=== PATIENT | female | born 1955 | race Caucasian/White ===

== ENCOUNTER 2016-08-20 11:46 | Outpatient (CLI) | payer BC ==
[~2016-08-20] VITALS: Ht 160.1 cm; Wt 50.9 kg
[~2016-08-20 11:46] MED LIST: ALBUTEROL0.83 MG/ML IH; ATIVAN 0.50.5 MG/TAB PO; CEPHALEXIN500 M1 PO; CORDARONE200 MG/TAB PO; DILANTIN 100MG100 MG PO; EXCEDRIN1 TAB PO; LOPRESSOR 550 MG/TAB PO; LORTAB 10/500 51 TAB PO; NATURAL VITAM1000 MG PO; NEURONTIN300 MG/CAP PO; NEURONTIN600 MG/TAB PO; NICODERM C21 MG/PATC TOP; NORCO 325 MG-101 TAB PO; OXYCONTIN 10MG10 MG PO; OXYCONTIN60 MG PO; PHENOBARBITAL32.4 MG PO; REQUIP XL2 MG PO; RT ADVAIR 228 DISKUS IH; SINGULAIR 110 MG/TAB PO; THEO-DUR 3300 MG/TAB PO; VENTOLIN0.09 MG IH; VITAMIN D1000 IU PO
[2016-08-20 12:12] VITALS: BP 121/65; PULSE 75
[2016-08-20 13:20] VITALS: BP 104/50; BP 107/50; PULSE 65; PULSE 76
[2016-08-20 13:45] VITALS: BP 11/78; PULSE 67
[2016-08-20 14:20] VITALS: BP 114/78; PULSE 78
[2016-08-20 14:45] VITALS: BP 110/56; PULSE 67
[2016-09-13] MEDS ORDERED: ASPIRIN 81M81 MG/TA2 PO (08:39)
== END 2016-08-24 10:11 | disposition home or self-care (01) ==
LOC: COL.RAD 11:46
DX: M51.16 Intervertebral disc disorders with radiculopathy, lumbar region (principal); G89.29 Other chronic pain
CPT/HCPCS: Q9965

== ENCOUNTER → 2016-08-24 | Outpatient (CLI) | payer BC ==
[~2016-08-24] MED LIST changes: +00186-0370-20 IH; +ASPIRIN 81M81 MG/TA2 PO; +DEPAKOTE 250MG250 MG PO; +FIORICET 325 MG1 TA1 PO; +KEPPRA 500MG500 MG PO; +LEXAPRO20 MG PO; +MAG-OX 400400 MG/TAB PO; +MASON NATURAL1200 MG PO; +MULTIPLE VITAMI1 CAP PO; +NORCO 325 MG-51 TAB PO
== END ==
LOC: MHCPAIN 13:13
DX: G89.29 Other chronic pain (principal); M47.817 Spondylosis without myelopathy or radiculopathy, lumbosacral region; M54.16 Radiculopathy, lumbar region; M53.3 Sacrococcygeal disorders, not elsewhere classified
CPT/HCPCS: G0463

== ENCOUNTER → 2016-09-13 | Outpatient (CLI) | payer BC | LOC: MHCPAIN 12:17 | DX: M47.817 Spondylosis without myelopathy or radiculopathy, lumbosacral region (principal) | CPT/HCPCS: J1040; Q9967 ==

== ENCOUNTER 2016-09-17 09:00 | Outpatient (CLI) | payer BC ==
[2016-09-17] VITALS (7 sets, daily range): BP systolic 109–130; BP diastolic 69–78; PULSE 60–82
[~2016-09-17] VITALS: Ht 160.1 cm; Wt 50.0 kg
[~2016-09-17 09:00] MED LIST changes: -00186-0370-20 IH; -DEPAKOTE 250MG250 MG PO; -FIORICET 325 MG1 TA1 PO; -KEPPRA 500MG500 MG PO; -LEXAPRO20 MG PO; -MAG-OX 400400 MG/TAB PO; -MASON NATURAL1200 MG PO; -MULTIPLE VITAMI1 CAP PO; -NORCO 325 MG-51 TAB PO
== END 2016-09-17 13:37 | disposition home or self-care (01) ==
LOC: COL.RAD 09:00
DX: M41.82 Other forms of scoliosis, cervical region (principal); M47.892 Other spondylosis, cervical region; S13.150A Subluxation of C4/C5 cervical vertebrae, initial encounter; S13.160A Subluxation of C5/C6 cervical vertebrae, initial encounter; J43.9 Emphysema, unspecified
CPT/HCPCS: Q9965

== ENCOUNTER 2016-09-21 14:21 | Emergency (ER) | payer BC ==
[~2016-09-21] VITALS: Ht 160 cm; Wt 50.0 kg
[2016-09-21 14:28] VITALS: TEMP 98.7
[2016-09-21] MEDS ORDERED: NORCO 325 MG-51 TAB PO (17:12)
[2016-09-21 17:20] VITALS: BP 115/77; PULSE 72
== END 2016-09-21 17:29 | disposition home or self-care (01) ==
LOC: COL.ER 14:21
DX: G43.909 Migraine, unspecified, not intractable, without status migrainosus (principal); M54.2 Cervicalgia; G20 Parkinson's disease; J44.9 Chronic obstructive pulmonary disease, unspecified; F17.210 Nicotine dependence, cigarettes, uncomplicated; Z99.81 Dependence on supplemental oxygen
CPT/HCPCS: J1885; J3360

== ENCOUNTER → 2016-10-12 | Outpatient (CLI) | payer BC ==
[~2016-10-12] MED LIST changes: +00186-0370-20 IH; +DEPAKOTE 250MG250 MG PO; +FIORICET 325 MG1 TA1 PO; +KEPPRA 500MG500 MG PO; +LEXAPRO20 MG PO; +MAG-OX 400400 MG/TAB PO; +MASON NATURAL1200 MG PO; +MULTIPLE VITAMI1 CAP PO; +NORCO 325 MG-51 TAB PO
== END ==
LOC: MHCPAIN 10:38
DX: G89.29 Other chronic pain (principal); M47.819 Spondylosis without myelopathy or radiculopathy, site unspecified; M54.16 Radiculopathy, lumbar region; M54.81 Occipital neuralgia; M50.90 Cervical disc disorder, unspecified, unspecified cervical region; R51 Headache
CPT/HCPCS: G0463

== ENCOUNTER → 2016-10-18 | Outpatient (CLI) | payer BC | LOC: MHCPAIN 10:11 | DX: M54.16 Radiculopathy, lumbar region (principal) | CPT/HCPCS: J1100; Q9967 ==

== ENCOUNTER → 2016-11-19 | Outpatient (CLI) | payer BC | LOC: MHCPAIN 10:39 | DX: G89.29 Other chronic pain (principal); M47.817 Spondylosis without myelopathy or radiculopathy, lumbosacral region; M54.16 Radiculopathy, lumbar region; F17.210 Nicotine dependence, cigarettes, uncomplicated | CPT/HCPCS: G0463 ==

== ENCOUNTER → 2016-11-22 | Outpatient (CLI) | payer BC | LOC: MHCPAIN 07:22 | DX: Z53.8 Procedure and treatment not carried out for other reasons (principal) ==

== ENCOUNTER 2016-12-13 09:17 | Emergency (ER) | payer BC ==
[~2016-12-13] VITALS: Ht 160 cm; Wt 53.2 kg
[~2016-12-13 09:17] MED LIST changes: -00186-0370-20 IH; -DEPAKOTE 250MG250 MG PO; -FIORICET 325 MG1 TA1 PO; -KEPPRA 500MG500 MG PO; -LEXAPRO20 MG PO; -MAG-OX 400400 MG/TAB PO; -MASON NATURAL1200 MG PO; -MULTIPLE VITAMI1 CAP PO
[2016-12-13 09:19] VITALS: TEMP 99
[2016-12-13] MEDS ORDERED: MULTIPLE VITAMI1 CAP PO (10:31)
[2016-12-13] MEDS ORDERED: MASON NATURAL1200 MG PO (10:31)
[2016-12-13] MEDS ORDERED: LEXAPRO20 MG PO (10:32)
[2016-12-13] MEDS ORDERED: MAG-OX 400400 MG/TAB PO (10:32)
[2016-12-13] MEDS ORDERED: FIORICET 325 MG1 TA1 PO (10:33)
[2016-12-13] MEDS ORDERED: 00186-0370-20 IH (10:33)
[2016-12-13] MEDS ORDERED: KEPPRA 500MG500 MG PO (10:33)
[2016-12-13] MEDS ORDERED: DEPAKOTE 250MG250 MG PO (10:34)
[2016-12-13] MEDS ORDERED: NORCO 325 MG-51 TAB PO (10:35)
[2016-12-13 11:16] VITALS: BP 128/81; PULSE 78
== END 2016-12-13 10:54 | disposition home or self-care (01) ==
LOC: COL.ER 09:17
DX: M54.9 Dorsalgia, unspecified (principal); G89.29 Other chronic pain; M54.2 Cervicalgia; I10 Essential (primary) hypertension; G20 Parkinson's disease; I48.91 Unspecified atrial fibrillation; F17.210 Nicotine dependence, cigarettes, uncomplicated; Z95.810 Presence of automatic (implantable) cardiac defibrillator
CPT/HCPCS: J1170

== ENCOUNTER → 2016-12-21 | Outpatient (CLI) | payer BC ==
[~2016-12-21] MED LIST changes: +00186-0370-20 IH; +DEPAKOTE 250MG250 MG PO; +FIORICET 325 MG1 TA1 PO; +KEPPRA 500MG500 MG PO; +LEXAPRO20 MG PO; +MAG-OX 400400 MG/TAB PO; +MASON NATURAL1200 MG PO; +MULTIPLE VITAMI1 CAP PO
== END ==
LOC: MHCPAIN 12:01
DX: G89.29 Other chronic pain (principal); M47.817 Spondylosis without myelopathy or radiculopathy, lumbosacral region; M54.16 Radiculopathy, lumbar region; M53.3 Sacrococcygeal disorders, not elsewhere classified; F17.210 Nicotine dependence, cigarettes, uncomplicated
CPT/HCPCS: G0463

== ENCOUNTER → 2017-01-08 | Outpatient (CLI) | payer BC | LOC: COL.RAD 12:29 | DX: M48.58XA Collapsed vertebra, not elsewhere classified, sacral and sacrococcygeal region, initial encounter for fracture (principal); W19.XXXA Unspecified fall, initial encounter | CPT/HCPCS: J1956 ==

== ENCOUNTER → 2017-01-09 | Outpatient (CLI) | payer BC | LOC: MHCPAIN 10:27 | DX: G89.29 Other chronic pain (principal); M47.817 Spondylosis without myelopathy or radiculopathy, lumbosacral region; M53.3 Sacrococcygeal disorders, not elsewhere classified | CPT/HCPCS: G0463 ==

== ENCOUNTER → 2017-01-10 | Outpatient (CLI) | payer BC | LOC: MHCPAIN 13:30 | DX: M47.817 Spondylosis without myelopathy or radiculopathy, lumbosacral region (principal) ==

== ENCOUNTER 2017-01-15 10:30 | Outpatient (RCR) | payer BC | END 2017-01-17 09:57 | LOC: WSPT 10:30 | DX: M48.02 Spinal stenosis, cervical region (principal); G95.9 Disease of spinal cord, unspecified; M62.838 Other muscle spasm; M43.12 Spondylolisthesis, cervical region; M54.5 Low back pain ==

== ENCOUNTER → 2017-01-16 | Outpatient (CLI) | payer BC | LOC: MHCPAIN 11:11 | DX: G89.29 Other chronic pain (principal); M47.817 Spondylosis without myelopathy or radiculopathy, lumbosacral region; M53.3 Sacrococcygeal disorders, not elsewhere classified; M84.48XA Pathological fracture, other site, initial encounter for fracture; F17.210 Nicotine dependence, cigarettes, uncomplicated | CPT/HCPCS: G0463 ==

== ENCOUNTER → 2017-01-29 | Outpatient (CLI) | payer BC | LOC: MHCPAIN 09:48 | DX: G89.29 Other chronic pain (principal); M47.817 Spondylosis without myelopathy or radiculopathy, lumbosacral region; M53.3 Sacrococcygeal disorders, not elsewhere classified; M79.2 Neuralgia and neuritis, unspecified; F17.210 Nicotine dependence, cigarettes, uncomplicated | CPT/HCPCS: G0463 ==

== ENCOUNTER → 2017-03-01 | Outpatient (CLI) | payer BC | LOC: MHCPAIN 10:13 | DX: G89.29 Other chronic pain (principal); M47.817 Spondylosis without myelopathy or radiculopathy, lumbosacral region; M53.3 Sacrococcygeal disorders, not elsewhere classified; R51 Headache; F17.210 Nicotine dependence, cigarettes, uncomplicated | CPT/HCPCS: G0463 ==

== ENCOUNTER → 2017-03-13 | Outpatient (CLI) | payer BC | LOC: MHCPAIN 09:43 | DX: M54.81 Occipital neuralgia (principal) | CPT/HCPCS: J1100 ==

== ENCOUNTER → 2017-03-14 | Outpatient (CLI) | payer BC | LOC: MC.RAD 09:50 | DX: Z12.31 Encounter for screening mammogram for malignant neoplasm of breast (principal) ==

== ENCOUNTER → 2017-04-16 | Outpatient (CLI) | payer BC | LOC: MHCPAIN 10:31 | DX: G89.29 Other chronic pain (principal); M50.90 Cervical disc disorder, unspecified, unspecified cervical region; M54.81 Occipital neuralgia; R51 Headache; F17.210 Nicotine dependence, cigarettes, uncomplicated | CPT/HCPCS: G0463 ==

== ENCOUNTER → 2017-06-19 | Outpatient (CLI) | payer BC | LOC: MHCPAIN 10:50 | DX: G89.29 Other chronic pain (principal); M54.16 Radiculopathy, lumbar region; M53.3 Sacrococcygeal disorders, not elsewhere classified; F17.210 Nicotine dependence, cigarettes, uncomplicated | CPT/HCPCS: G0463 ==

== ENCOUNTER 2017-07-08 13:52 | Day surgery (SDC) | payer BC ==
[~2017-07-08] VITALS: Ht 160 cm; Wt 55.0 kg
[~2017-07-08 13:52] MED LIST changes: -VITAMIN D1000 IU PO; +VITAMIN D31000 IU PO
[2017-07-08] MEDS ORDERED: TYLENOL 500MG500 MG PO (14:11)
[2017-07-08] MEDS ORDERED: NORCO 325 MG-101 TAB PO (14:18)
[2017-07-08] MEDS ORDERED: IPRATROPIUM BROM3 M1 IH (14:23)
[2017-07-08] MEDS ORDERED: FOSAMAX 70MG TA70 MG PO (14:23)
[2017-07-08 14:27] VITALS: BP 115/71; PULSE 89; TEMP 98.3
[2017-07-08] MEDS ORDERED: MOTRIN 800800 MG/TAB PO (14:35)
[2017-07-08] MEDS ORDERED: KEPPRA 500MG500 MG PO (14:38)
[2017-07-08] MEDS ORDERED: MIDRIN 325 MG-11 CAP PO (14:38)
[2017-07-08] MEDS ORDERED: PHENOBARBITAL32.4 MG PO (14:40)
[2017-07-08] MEDS ORDERED: NICODERM C21 MG/PATC TD (14:52)
[2017-07-08 15:50] VITALS: BP 116/70; PULSE 81; TEMP 98.4
[2017-07-08 16:05] VITALS: BP 103/67; PULSE 79
== END 2017-07-08 16:46 | disposition home or self-care (01) ==
LOC: SDCO 13:52
DX: K92.1 Melena (principal); K57.30 Diverticulosis of large intestine without perforation or abscess without bleeding; K64.1 Second degree hemorrhoids; J43.9 Emphysema, unspecified; K59.00 Constipation, unspecified; F17.210 Nicotine dependence, cigarettes, uncomplicated; Z88.8 Allergy status to other drugs, medicaments and biological substances; Z86.010 Personal history of colon polyps; Z80.0 Family history of malignant neoplasm of digestive organs; Z80.1 Family history of malignant neoplasm of trachea, bronchus and lung; Z83.71 Family history of colonic polyps
CPT/HCPCS: OP; J2704; J7030

== ENCOUNTER → 2017-08-14 | Outpatient (CLI) | payer BC ==
[~2017-08-14] MED LIST changes: +FOSAMAX 70MG TA70 MG PO; +IPRATROPIUM BROM3 M1 IH; +MIDRIN 325 MG-11 CAP PO; +MOTRIN 800800 MG/TAB PO; +NICODERM C21 MG/PATC TD; +TYLENOL 500MG500 MG PO
== END ==
LOC: MHCPAIN 10:31
DX: G89.29 Other chronic pain (principal); M50.10 Cervical disc disorder with radiculopathy, unspecified cervical region; M54.81 Occipital neuralgia; F17.210 Nicotine dependence, cigarettes, uncomplicated
CPT/HCPCS: G0463

== ENCOUNTER → 2017-09-05 | Outpatient (CLI) | payer MEDICARE, BC | LOC: MHCPAIN 09:14 | DX: M50.323 Other cervical disc degeneration at C6-C7 level (principal); M48.02 Spinal stenosis, cervical region | CPT/HCPCS: J1100; Q9967 ==

== ENCOUNTER → 2017-09-18 | Outpatient (CLI) | payer MEDICARE, BC | LOC: MHCPAIN 09:32 | DX: G89.29 Other chronic pain (principal); M50.90 Cervical disc disorder, unspecified, unspecified cervical region; M54.12 Radiculopathy, cervical region; R51 Headache | CPT/HCPCS: G0463 ==

== ENCOUNTER → 2017-10-03 | Outpatient (CLI) | payer MEDICARE, BC | LOC: MHCPAIN 13:11 | DX: M50.322 Other cervical disc degeneration at C5-C6 level (principal); M46.96 Unspecified inflammatory spondylopathy, lumbar region | CPT/HCPCS: J1100; Q9967 ==

== ENCOUNTER → 2017-11-05 | Outpatient (CLI) | payer MEDICARE, BC | LOC: MHCPAIN 10:53 | DX: G89.29 Other chronic pain (principal); M50.90 Cervical disc disorder, unspecified, unspecified cervical region; M54.12 Radiculopathy, cervical region; M54.81 Occipital neuralgia; R51 Headache | CPT/HCPCS: G0463 ==

== ENCOUNTER → 2017-11-20 | Outpatient (CLI) | payer MEDICARE, BC | LOC: MHCPAIN 10:05 | DX: M50.322 Other cervical disc degeneration at C5-C6 level (principal) ==

== ENCOUNTER → 2017-11-26 | Outpatient (CLI) | payer MEDICARE, BC | LOC: MHCPAIN 12:14 | DX: G89.29 Other chronic pain (principal); M50.90 Cervical disc disorder, unspecified, unspecified cervical region; M54.12 Radiculopathy, cervical region; M54.81 Occipital neuralgia; R51 Headache | CPT/HCPCS: G0463 ==

== ENCOUNTER → 2018-01-28 | Outpatient (CLI) | payer MEDICARE, OTHER | LOC: MHCPAIN 10:11 | DX: G89.29 Other chronic pain (principal); M50.90 Cervical disc disorder, unspecified, unspecified cervical region; M54.12 Radiculopathy, cervical region; M54.81 Occipital neuralgia; R51 Headache | CPT/HCPCS: G0463 ==

== ENCOUNTER → 2018-03-25 | Outpatient (CLI) | payer MEDICARE, OTHER | LOC: MHCPAIN 10:21 | DX: G89.29 Other chronic pain (principal); M50.90 Cervical disc disorder, unspecified, unspecified cervical region; M54.12 Radiculopathy, cervical region; M54.81 Occipital neuralgia; R51 Headache | CPT/HCPCS: G0463 ==

== ENCOUNTER → 2018-03-27 | Outpatient (CLI) | payer MEDICARE, OTHER | LOC: MHCPAIN 10:25 | DX: M54.12 Radiculopathy, cervical region (principal); M50.90 Cervical disc disorder, unspecified, unspecified cervical region | CPT/HCPCS: J1100; Q9967 ==

== ENCOUNTER → 2018-05-21 | Outpatient (CLI) | payer MEDICARE, OTHER | LOC: MHCPAIN 10:05 | DX: G89.29 Other chronic pain (principal); M54.12 Radiculopathy, cervical region; M54.81 Occipital neuralgia; R51 Headache; M47.812 Spondylosis without myelopathy or radiculopathy, cervical region | CPT/HCPCS: G0463 ==

== ENCOUNTER → 2018-07-21 | Outpatient (CLI) | payer MEDICARE, OTHER | LOC: MHCPAIN 10:04 | DX: G89.29 Other chronic pain (principal); M54.12 Radiculopathy, cervical region; M54.81 Occipital neuralgia; R51 Headache; M47.812 Spondylosis without myelopathy or radiculopathy, cervical region | CPT/HCPCS: G0463 ==

== ENCOUNTER → 2018-09-15 | Outpatient (CLI) | payer MEDICARE, OTHER | LOC: MHCPAIN 10:56 | DX: G89.29 Other chronic pain (principal); M54.12 Radiculopathy, cervical region; M54.81 Occipital neuralgia; R51 Headache; M47.812 Spondylosis without myelopathy or radiculopathy, cervical region | CPT/HCPCS: G0463 ==

== ENCOUNTER → 2018-12-02 | Outpatient (CLI) | payer MEDICARE, OTHER | LOC: MHCPAIN 09:41 | DX: G89.29 Other chronic pain (principal); M47.817 Spondylosis without myelopathy or radiculopathy, lumbosacral region; M53.3 Sacrococcygeal disorders, not elsewhere classified; M50.90 Cervical disc disorder, unspecified, unspecified cervical region; M54.12 Radiculopathy, cervical region | CPT/HCPCS: G0463 ==

== ENCOUNTER → 2018-12-15 | Outpatient (CLI) | payer MEDICARE, OTHER | LOC: MHCPAIN 13:33 | DX: M47.817 Spondylosis without myelopathy or radiculopathy, lumbosacral region (principal); M54.16 Radiculopathy, lumbar region ==

== ENCOUNTER → 2019-01-15 | Outpatient (CLI) | payer MEDICARE, OTHER | LOC: MHCPAIN 10:49 | DX: M47.817 Spondylosis without myelopathy or radiculopathy, lumbosacral region (principal); M54.16 Radiculopathy, lumbar region; G89.29 Other chronic pain | CPT/HCPCS: G0463 ==

== ENCOUNTER → 2019-03-03 | Outpatient (CLI) | payer MEDICARE, OTHER | LOC: MHCPAIN 09:43 | DX: G89.29 Other chronic pain (principal); M47.817 Spondylosis without myelopathy or radiculopathy, lumbosacral region; M53.3 Sacrococcygeal disorders, not elsewhere classified | CPT/HCPCS: G0463 ==

== ENCOUNTER 2019-03-18 02:11 | Inpatient (IN) | payer MEDICARE, OTHER ==
[2019-03-18] VITALS (906 sets, daily range): BP systolic 56–143; BP diastolic 21–105; PULSE 26–130; TEMP 38; O2SAT 63–100
[~2019-03-18] VITALS: Ht 160 cm; Wt 69.8 kg
--- NOTE | 2019-03-18 02:07 | NUR ---
Patient arrived to the unit via EMS. Patient intubated at time of arrival and was being bagged by EMT's. This nurse did not receive a report from the other facility or EMS until after patients arrival. Patient had a stable BP and pulse on arrival. Dr. Ruby with patient upon arrival. Attached to our monitors. Hospitalist called and stated would call Dr. Roldan at this time. Dr. Ruby stated that he had contacted the daughter and that she would be coming.
[2019-03-18 02:39] LABS: ARTERIAL BLD GAS O2 SATURATION 99.1 % (92-100); ARTERIAL BLD GAS TCO2 CT 11.2; ARTERIAL BLOOD GAS BASE EXCESS -23.4 (-2-2); ARTERIAL BLOOD GAS HCO3 9.3 meq/L (22-26); ARTERIAL BLOOD GAS PCO2 60.7 mmHg (35-45)
[2019-03-18 02:40] LABS: ARTERIAL BLOOD GAS PO2 222.9 mmHg (80-100)
[2019-03-18 02:44] LABS: MEAN CELL VOLUME 100 fl (80.0-100.0); MEAN CORPUSCULAR HGB CONC 29 g/dl (33.0-37.0); MEAN PLATELET VOLUME 11.5 fl (7.4-10.4); PLATELET COUNT 98 K/mm3 (130-400); RED BLOOD COUNT 2.24 M/mm3 (4.10-5.30); REDCELL DISTRIBUTION WIDTH-CV 15.9 % (11.5-14.5)
--- NOTE | 2019-03-18 02:45 | NUR ---
Dr. Roldan here assess patient and to place central line.
[2019-03-18 02:48] LABS: HEMATOCRIT 22.5 % (37.0-47.0); HEMOGLOBIN 6.6 g/dl (12.5-16.0); MEAN CORPUSCULAR HEMOGLOBIN 29 pg (27.0-31.0)
[2019-03-18 02:50] LABS: INR 1.6 (0.8-3.0)
--- NOTE | 2019-03-18 02:54 | NUR ---
Called daughter and updated on patient status. Received verbal consent for central line placement.
[2019-03-18 02:57] LABS: ALBUMIN 1.5 gm/dL (3.5-5.0); BILIRUBIN,TOTAL 0.1 mg/dL (0.0-1.0); CALCIUM 6.7 mg/dL (8.4-10.2); CREATININE, serum 0.97 (0.52-1.25); POTASSIUM 5.7 mmol/L (3.4-5.0); TOTAL PROTEIN 2.8 gm/dL (6.4-8.2)
--- NOTE | 2019-03-18 03:00 | NUR ---
Instructed per Dr. Roldan to administer blood "wide open". Will bypass usual cross match checks.
--- NOTE | 2019-03-18 03:30 | NUR ---
Dr. Roldan unsuccessful with starting central line. Requested to call in Dr. Gomez from Surgery.
[2019-03-18 03:35] LABS: BAND 4 % (0-10); EOSINOPHIL 1 % (0-4); LYMPHOCYTE 18 % (20.0-51.0); METAMYELOCYTE 1 % (0-0); MYELOCYTE 4 % (0-0); NEUTROPHILS 67 % (42.0-75.2); PLATELET ESTIMATE DECREASED (NORMAL)
[2019-03-18 03:36] LABS: ANISOCYTOSIS 1+; HYPOCHROMIA 3+
--- NOTE | 2019-03-18 04:07 | NUR ---
Dr. Gomez at bedside to attempt central line placement. Attempt not successfrul and Dr. Gomez placed an 18g in the left neck.
--- NOTE | 2019-03-18 04:30 | NUR ---
Unable to obtain temp via axillary. Will need to attempt rectal. Dr. Gomez with patient attempting a line placement.
[2019-03-18 04:36] LABS: HEMATOCRIT 30.7 % (37.0-47.0); HEMOGLOBIN 9.8 g/dl (12.5-16.0)
[2019-03-18 04:47] LABS: ARTERIAL BLD GAS O2 SATURATION 95.4 % (92-100); ARTERIAL BLD GAS TCO2 CT 16.9; ARTERIAL BLOOD GAS BASE EXCESS -14.8 (-2-2); ARTERIAL BLOOD GAS HCO3 15.2 meq/L (22-26); ARTERIAL BLOOD GAS PCO2 55.1 mmHg (35-45); ARTERIAL BLOOD GAS PO2 92.7 mmHg (80-100); ARTERIAL BLOOD GAS pH 7.06 (7.35-7.45)
[2019-03-18 04:48] LABS: ALBUMIN 1.5 gm/dL (3.5-5.0); BILIRUBIN,TOTAL 0.1 mg/dL (0.0-1.0); CALCIUM 6.2 mg/dL (8.4-10.2); CREATININE, serum 0.93 (0.52-1.25); TOTAL PROTEIN 2.9 gm/dL (6.4-8.2)
[2019-03-18 04:52] LABS: POTASSIUM 6.1 mmol/L (3.4-5.0)
--- NOTE | 2019-03-18 05:30 | NUR ---
Rectal tube placed; Temp [address] Roldan notified. Unable to locate Teto Ayon in unit or ED. Called change house attendant to obtain blanket for warmer.
--- NOTE | 2019-03-18 05:40 | NUR ---
Notified Dr. Roldan that patient was having some bleeding from surgical sites after repositioning and turing patient on her side. Band-aids in place. No orders at this time.
--- NOTE | 2019-03-18 05:45 | NUR ---
Clarified with Dr. Galindo that he still wanted Cyklokapron administered. Confirmed that he still did. Med not available in [facility]. Will have pharmcay mix drug when on site.
--- NOTE | 2019-03-18 06:17 | NUR ---
Patient open eyes on and off. Shook head yes when told where she was and asked if she remembered having surgery. Able to lightly sqeeze hands on command.
--- NOTE | 2019-03-18 06:20 | NUR ---
Still awaiting Tommy rushing from warehouse clerk. Called shaina to request blanket. Stated she will go try to locate one in PACU.
--- NOTE | 2019-03-18 06:30 | NUR ---
Tommy hugger blanket placed and set to High setting. Rectal temp 93.7 F.
--- NOTE | 2019-03-18 06:45 | NUR ---
Received phone call from Pharmacist regarding Cyklokapron. Pharmacist questioning the necessity and benefit of this drug for this patient. Agreed to put med on hold until can discuss with hospitalist on days.
[2019-03-18 07:37] LABS: ARTERIAL BLOOD GAS pH 7.33 (7.35-7.45)
[2019-03-18 07:38] LABS: ARTERIAL BLD GAS O2 SATURATION 94.3 % (92-100); ARTERIAL BLD GAS TCO2 CT 23.3; ARTERIAL BLOOD GAS BASE EXCESS -3.7 (-2-2); ARTERIAL BLOOD GAS PCO2 42.3 mmHg (35-45)
--- NOTE | 2019-03-18 08:00 | NUR ---
PT IS ABLE TO OPEN EYES SPONTANEOUSLY AND COMMAND. PT IS FOLLOWING COMMANDS TO SQUEEZE HANDS AND MOVE TOES. BEARHUGGER IS ON.
--- NOTE | 2019-03-18 08:58 | NUR ---
Initial visit; Daughters; Filomena and Gail thanked for offering prayer for their mom and their family during this difficualt time. prayed for healing and strength for all.
[2019-03-18 09:27] LABS: HEMOGLOBIN 10.8 g/dl (12.5-16.0); MEAN CORPUSCULAR HEMOGLOBIN 29 pg (27.0-31.0); MEAN CORPUSCULAR HGB CONC 34 g/dl (33.0-37.0); MEAN PLATELET VOLUME 11.2 fl (7.4-10.4); PLATELET COUNT 64 K/mm3 (130-400); RED BLOOD COUNT 3.69 M/mm3 (4.10-5.30); REDCELL DISTRIBUTION WIDTH-CV 15.6 % (11.5-14.5)
[2019-03-18 10:05] LABS: HEMATOCRIT 31.8 % (37.0-47.0); MEAN CELL VOLUME 86 fl (80.0-100.0)
[2019-03-18 10:15] LABS: POTASSIUM 4.5 mmol/L (3.4-5.0)
[2019-03-18 10:21] LABS: BAND 36 % (0-10); LYMPHOCYTE 14 % (20.0-51.0); METAMYELOCYTE 1 % (0-0); MYELOCYTE 1 % (0-0); NEUTROPHILS 45 % (42.0-75.2); PLATELET ESTIMATE DECREASED (NORMAL)
[2019-03-18 10:24] LABS: ANISOCYTOSIS 1+; HYPOCHROMIA 1+
[2019-03-18 10:25] LABS: BILIRUBIN,TOTAL 0.4 mg/dL (0.0-1.0); CALCIUM 6.3 mg/dL (8.4-10.2); CREATININE, serum 0.96 (0.52-1.25); TOTAL PROTEIN 3.5 gm/dL (6.4-8.2)
--- NOTE | 2019-03-18 11:17 | NUR ---
DEREK lopes met with the patient (patient is intubated) and the patient's daughters, Filomena and Gail to discuss a discharge plan. The patient lives in [place] with her , Axel. The patient has a cane and uses oxygen. Patient receives oxygen supplies from [facility] in [place]. The patients PCP is Dr. Nelson and patient receives medications from [facility] pharmacy. Family helps quill picking machine operator medications. The patient does not have advanced directives in the EMR. The patient's daughter thought she signed DPOA-HC paperwork. DEREK lopes contacted [facility], Dr. Kennedy and Dr. Nelson's office to inquire about DPOA-HC paperwork and there is no paperwork on file. DEREK lopes explained to the patients daughters about medical decision making. The patient's daughters state the patient's does not assist with patient's medical decisions. DEREK lopes adivsed the patient's daughters that the patient's legally has to make medical decisions. business services coordinator will continue to follow.
--- NOTE | 2019-03-18 12:00 | NUR ---
0930: PT TEMP 98.2 F - BEARHUGGER TURNED DOWN TO MEDIUM. 0945: PT TEMP 98.8 F - BEARHUGGER TURNED OFF. 1015: PT TEMP 99.5 F - BLANKETS REMOVED FROM PT, ONLY ONE SHEET COVERING 1100: PT TEMP 100.2 - NOTIFIED OF BODY TEMP. FAN TURNED ON OVER PT. 1200: INFORMED OF OOZING FROM BLOODY OOZING AT SURGICAL SITES AND INSTRUCTS TO REINFORCE SURGICAL SITES - ABD PAD APPLIED OVER SITES AND SECURED WITH PAPER TAPE. BODY TEMP 100.9; AWARE. LEVOPHED INITIATED DUE TO LOW BP; NOTIFIED.
--- NOTE | 2019-03-18 13:00 | NUR ---
CALLED AND INFORMED PT HAS HAD 50ML OF URINE OUTPUT. RESPONSE: CONTINUE TO MONITOR THE NEXT COUPLE OF HOURS AND WILL RE-EVALUATE.
--- NOTE | 2019-03-18 14:37 | NUR ---
Worker and GAS BRAZER student met with the patients , Axel to discuss legal next of kin. The reports he and the patient have a son named Cullen. Axel reports there is not a DPOA-HC. The patient's daughter, Filomena reported she may have signed a DPOA-HC at some point and gave a list of the patient's physicians. GAS BRAZER student contacted the following physician offices inquire about DPOA-HC paperwork but none was provided: Dr. Nelson, Dr. Kennedy, Dr. Dejesus, Dr. Cruz and [facility]. The patient's is the legal next of kin. account services coordinator will continue to follow.
[2019-03-18 15:08] LABS: HEMATOCRIT 25.3 % (37.0-47.0); HEMOGLOBIN 8.7 g/dl (12.5-16.0)
[2019-03-18 15:34] LABS: ARTERIAL BLD GAS O2 SATURATION 93.8 % (92-100); ARTERIAL BLD GAS TCO2 CT 23.4; ARTERIAL BLOOD GAS BASE EXCESS -1.7 (-2-2); ARTERIAL BLOOD GAS HCO3 22.3 meq/L (22-26); ARTERIAL BLOOD GAS PCO2 34.8 mmHg (35-45); ARTERIAL BLOOD GAS PO2 69.3 mmHg (80-100); ARTERIAL BLOOD GAS pH 7.43 (7.35-7.45)
--- NOTE | 2019-03-18 17:00 | NUR ---
PT STABALIZING. NO SEDATION VACATION CONDUCTED.
[2019-03-18 18:16] LABS: HEMATOCRIT 23.7 % (37.0-47.0); HEMOGLOBIN 8.3 g/dl (12.5-16.0)
[2019-03-18 22:50] LABS: HEMATOCRIT 22.1 % (37.0-47.0); HEMOGLOBIN 7.7 g/dl (12.5-16.0)
--- NOTE | 2019-03-18 22:55 | NUR ---
NOTIFIED OF HGB 7.7, CURRENT VSS, AND OUTPUT. ORDER RECEIVED TO TRANSFUSE TWO UNITS AND THEN CHECK H/H AND A FIBRINOGIN LEVEL. ALSO ASKED THAT WE NOTIFY [facility] OF ABOVE. 2300: NOTIFIED JARAD POLO WITH [facility] REGARDING ABOVE. STATED HE WILL INFORM .
[2019-03-18 23:00] LABS: ALBUMIN 2.1 gm/dL (3.5-5.0); BILIRUBIN,TOTAL 0.1 mg/dL (0.0-1.0); CALCIUM 6.3 mg/dL (8.4-10.2); CREATININE, serum 1.39 (0.52-1.25); POTASSIUM 4.1 mmol/L (3.4-5.0); TOTAL PROTEIN 3.8 gm/dL (6.4-8.2)
[2019-03-18 23:10] LABS: ARTERIAL BLD GAS O2 SATURATION 94.3 % (92-100); ARTERIAL BLD GAS TCO2 CT 20.8; ARTERIAL BLOOD GAS HCO3 19.8 meq/L (22-26); ARTERIAL BLOOD GAS PCO2 30.8 mmHg (35-45); ARTERIAL BLOOD GAS PO2 71.8 mmHg (80-100); ARTERIAL BLOOD GAS pH 7.43 (7.35-7.45)
[2019-03-19] VITALS (1432 sets, daily range): BP systolic 88–129; BP diastolic 45–74; PULSE 90–111; TEMP 38–38.1; O2SAT 86–100
--- NOTE | 2019-03-19 03:25 | NUR ---
Pt became restless, shaking her arms, respirtaions 26, and when asked if she was in pain she shook her head yes. Comforted PT and encouraged her to try and relax. Propofol increased and oracle data warehouse developer called for Fentynl drip. Will continue to monitor.
--- NOTE | 2019-03-19 03:51 | NUR ---
PT RESTLESS AND TRYING TO MOVE HER ARMS AND PULL AT LINES. PT HR ELEVATED TO THE 120'S AND RESPIRATIONS 26. ASKED PT IF SHE WANTED ME TO GET HER SISTER AND SHE SHOOK HER HEAD YES. SISTER CAME IN FROM WAITING ROOM TO COMFORT PT. PROPOFOL AND FENT INCREASED. WILL CONTINUE TO MONTIOR CLOSELY.
--- NOTE | 2019-03-19 04:06 | NUR ---
PT RESTING COMFORTABLY. HR 108 AND RESPIRATIONS 20. SISTER BEDSIDE WITH PT. WILL CONTINUE TO MONITOR AND WEAN DOWN SEDATION ABLE.
--- NOTE | 2019-03-19 05:00 | NUR ---
AT 0345 PT BECAME VERY RESTLESS AND AGITATED. PT TRYING TO SIT UP IN BED AND PULL AT LINES AND TUBES. PT ABLE TO FOLLOW COMMANDS AND ANSWER YES AND NO QUESTIONS. PT'S HR UP TO THE 120'S AND RESPIRATIONS UP TO 30. PROPOFOL HAD TO BE TITRATED UP TO 50MCG/KG/MIN AND FENTYNL WAS ADDED WHEN PT RESPONDED YES TO PAIN. PT SISTER ALSO CAME BEDSIDE TO HELP CALM PT. PT FINALLY RESTING CALMLY AT AROUND 0410.PT STILL RESPONDING TO NAME AND TOUNCH. STARTED WEANING BACK ON SEDATION AND NOW PROPOFOL AT 30MCG/KG/MIN. WILL TRY TO WEAN DOWN FENTYNL. UNALBE TO DO SEDATION VACATION AT THIS TIME.
[2019-03-19 05:20] LABS: BASO % 0.1 % (0.0-2.0); GRAN # 9.1 (1.4-6.5); GRAN % 79.3 % (42.2-75.2); LYMPH # 1.2 (1.2-3.4); MEAN CELL VOLUME 85 fl (80.0-100.0); MEAN CORPUSCULAR HGB CONC 35 g/dl (33.0-37.0); MEAN PLATELET VOLUME 11.2 fl (7.4-10.4); MONO # 1.2 (0.1-0.6); MONO % 10.2 % (1.7-9.3); PLATELET COUNT 63 K/mm3 (130-400); RED BLOOD COUNT 3.16 M/mm3 (4.10-5.30); REDCELL DISTRIBUTION WIDTH-CV 17.1 % (11.5-14.5)
[2019-03-19 05:21] LABS: HEMATOCRIT 26.9 % (37.0-47.0); HEMOGLOBIN 9.3 g/dl (12.5-16.0); MEAN CORPUSCULAR HEMOGLOBIN 29 pg (27.0-31.0)
[2019-03-19 05:32] LABS: ALBUMIN 2.1 gm/dL (3.5-5.0); BILIRUBIN,TOTAL 0.5 mg/dL (0.0-1.0); CALCIUM 6.1 mg/dL (8.4-10.2); CREATININE, serum 1.17 (0.52-1.25); MAGNESIUM 1.5 mg/dL (1.6-2.3); PHOSPHOROUS 3.4 mg/dL (2.5-4.5); TOTAL PROTEIN 3.9 gm/dL (6.4-8.2)
[2019-03-19 05:38] LABS: ARTERIAL BLD GAS O2 SATURATION 95.7 % (92-100); ARTERIAL BLD GAS TCO2 CT 21.1; ARTERIAL BLOOD GAS BASE EXCESS -4.1 (-2-2); ARTERIAL BLOOD GAS HCO3 20.1 meq/L (22-26)
--- NOTE | 2019-03-19 06:08 | NUR ---
NOTIFIED JARAD POLO WITH [facility] OF PT'S MAG LEVEL 1.5. ORDER RECEIVED FROM FOR MAG 4GRAM IV REPLACEMENT.
--- NOTE | 2019-03-19 06:40 | NUR ---
bedside. Updated on overnight events. updated sister at bedside.
--- NOTE | 2019-03-19 07:30 | NUR ---
PT SUCTIONED AND SPUTUM OBTAINED FOR CULTURE PER MD ORDER.
--- NOTE | 2019-03-19 08:00 | NUR ---
Shift assessment complete at this time. Plan of care reviewed at bedside with family. Vitals stable at this time. Pt appears to be more comfortably resting while on ventilator after fentanyl gtt was increased. Prior Pt was restless and displaying signs of pain. No other signs of discomfort currently noted. Sister at bedside currently. Bed in low position, will continue to monitor.
[2019-03-19 10:52] LABS: ALBUMIN 2.1 gm/dL (3.5-5.0); BILIRUBIN,TOTAL 0.6 mg/dL (0.0-1.0); CALCIUM 6.1 mg/dL (8.4-10.2); CREATININE, serum 1.06 (0.52-1.25); POTASSIUM 3.8 mmol/L (3.4-5.0); TOTAL PROTEIN 3.9 gm/dL (6.4-8.2)
[2019-03-19 11:36] LABS: HEMOGLOBIN 8.5 g/dl (12.5-16.0)
--- NOTE | 2019-03-19 12:00 | NUR ---
Shift reassesment completed at this time. No changes from previous assessment noted. Pt reports mild increase in pain, will increase analgesic gtt accordingly per orders. Vitals stable at this time. Bed in low position, call light within reach, will continue to monitor.
--- NOTE | 2019-03-19 16:00 | NUR ---
Shift reassessment complete at this time. No changes from previous assessment noted. Vitals stable at this time. Pt appears to be resting comfortably in bed with current sedation level and displays no signs of pain or discomfort. Bed in low et locked position, will continue to monitor.
--- NOTE | 2019-03-19 17:08 | NUR ---
No sedation vacation performed at this time. Pt has been restless at RASS of +1 for the majority of the day. Will slowly wean off sedation to minimum required dosage.
[2019-03-19 18:38] LABS: BILIRUBIN,TOTAL 0.4 mg/dL (0.0-1.0); CALCIUM 6.3 mg/dL (8.4-10.2); CREATININE, serum 0.89 (0.52-1.25); POTASSIUM 3.7 mmol/L (3.4-5.0); TOTAL PROTEIN 3.9 gm/dL (6.4-8.2)
[2019-03-19 18:47] LABS: HEMATOCRIT 23.5 % (37.0-47.0); HEMOGLOBIN 7.9 g/dl (12.5-16.0)
[2019-03-19 18:50] LABS: TROPONIN-I 0.045 ng/mL (0.000-0.035)
--- NOTE | 2019-03-19 19:24 | NUR ---
Bedside report given to MELANI Tirado.
--- NOTE | 2019-03-19 19:44 | NUR ---
PT COMPLAINING OF PAIN, FENTANYL INCREASED.
--- NOTE | 2019-03-19 20:00 | NUR ---
PT FOLLOWS COMMANDS AND WRITES ON PAPER TO VOICE OUT NEEDS. PT REMAINS ON VENTILATOR. WILL CONTINUE TO MONITOR.
--- NOTE | 2019-03-19 21:02 | NUR ---
BLOOD TRANSFUSION STARTED AT 2100, CONSENT AND BLOOD PRODUCT VERIFIED. VS STABLE. WILL REMAIN IN ROOM FOR ATLEAST 15 MINS. WILL CONTINUE TO MONITOR.
[2019-03-20] VITALS (1382 sets, daily range): BP systolic 92–126; BP diastolic 54–75; PULSE 84–105; TEMP 97.5–100.7; O2SAT 77–100
--- NOTE | 2019-03-20 01:34 | NUR ---
BLOOD TRANSFUSION DONE. PT RECEIVED 1 PRBC AND 4 BAGS OF CRYOPRECIPITATE. NO REACTIONS NOTED AT THIS TIME AND VSS. WILL CONTINUE TO MONIOTR.
[2019-03-20 01:58] LABS: HEMATOCRIT 25.8 % (37.0-47.0); HEMOGLOBIN 8.8 g/dl (12.5-16.0)
--- NOTE | 2019-03-20 05:04 | NUR ---
SEDATION VACATION NOT CUT IN HALF PT ALREADY AWAKE AND TRYING TO GET OUT OF BED AT 30 MCG/KG/MIN OF PROPOFOL. FENTANYL DECREASED AT 100 MCG/HR WELL.
[2019-03-20 05:13] LABS: ARTERIAL BLD GAS O2 SATURATION 95.6 % (92-100); ARTERIAL BLD GAS TCO2 CT 22.1; ARTERIAL BLOOD GAS BASE EXCESS -3.7 (-2-2); ARTERIAL BLOOD GAS PO2 80.8 mmHg (80-100); ARTERIAL BLOOD GAS pH 7.38 (7.35-7.45)
[2019-03-20 06:48] LABS: MEAN CELL VOLUME 89 fl (80.0-100.0); MEAN CORPUSCULAR HGB CONC 33 g/dl (33.0-37.0); MEAN PLATELET VOLUME 11.4 fl (7.4-10.4); PLATELET COUNT 54 K/mm3 (130-400); RED BLOOD COUNT 2.96 M/mm3 (4.10-5.30); REDCELL DISTRIBUTION WIDTH-CV 17.1 % (11.5-14.5)
[2019-03-20 07:00] LABS: HEMATOCRIT 26.3 % (37.0-47.0); HEMOGLOBIN 8.6 g/dl (12.5-16.0); MEAN CORPUSCULAR HEMOGLOBIN 29 pg (27.0-31.0)
[2019-03-20 07:01] LABS: ALBUMIN 2.2 gm/dL (3.5-5.0); BILIRUBIN,TOTAL 0.5 mg/dL (0.0-1.0); CALCIUM 6.7 mg/dL (8.4-10.2); CREATININE, serum 0.73 (0.52-1.25); MAGNESIUM 2.1 mg/dL (1.6-2.3); PHOSPHOROUS 2.3 mg/dL (2.5-4.5); POTASSIUM 3.8 mmol/L (3.4-5.0); TOTAL PROTEIN 4.3 gm/dL (6.4-8.2)
--- NOTE | 2019-03-20 07:20 | NUR ---
Bedside report recieved from Candida POLO. Medication drips and lines verified at this time. Patient awake and restless, doing CPAP trial at this time.
[2019-03-20 08:25] LABS: BAND 33 % (0-10); EOSINOPHIL 1 % (0-4); LYMPHOCYTE 7 % (20.0-51.0); METAMYELOCYTE 1 % (0-0); NEUTROPHILS 50 % (42.0-75.2); PLATELET ESTIMATE DECREASED (NORMAL)
[2019-03-20 08:26] LABS: ANISOCYTOSIS 1+; HYPOCHROMIA 2+
[2019-03-20 08:27] LABS: ARTERIAL BLD GAS O2 SATURATION 94.8 % (92-100); ARTERIAL BLD GAS TCO2 CT 21.2; ARTERIAL BLOOD GAS BASE EXCESS -5.5 (-2-2); ARTERIAL BLOOD GAS PCO2 38.9 mmHg (35-45); ARTERIAL BLOOD GAS PO2 75.4 mmHg (80-100); ARTERIAL BLOOD GAS pH 7.33 (7.35-7.45)
--- NOTE | 2019-03-20 09:28 | NUR ---
Vancomycin Initial Dosing Pharmacy Note Ordering provider: Juan Vazquez B.MD Indication/duration: febrile on Zosyn s/p witnessed aspiration Relevant comorbidities: acute respiratory failure requiring mechanical ventilation, s/p LAVH on 03/17/19 Recommendation: Vancomycin 1.5 gm IV x1 load, followed by Vancomycin 1.25 gm IV q12h. Pharmacy will continue to monitor and check a Vancomycin trough on 03/22/19. Loading dose: 1.5 grams Maintenance dose: 1.25 grams every 12 hours Trough goal: 15-20 ug/mL
[2019-03-20 14:09] LABS: HEMATOCRIT 26.2 % (37.0-47.0); HEMOGLOBIN 8.7 g/dl (12.5-16.0)
--- NOTE | 2019-03-20 17:00 | NUR ---
No sedation vacation at this time. Patient did not tolerate vacation this AM, very restless afterwards and hard to get comfortable afterwards.
[2019-03-20 18:21] LABS: ARTERIAL BLD GAS O2 SATURATION 95.4 % (92-100); ARTERIAL BLD GAS TCO2 CT 20.3; ARTERIAL BLOOD GAS BASE EXCESS -5.1 (-2-2); ARTERIAL BLOOD GAS HCO3 19.3 meq/L (22-26); ARTERIAL BLOOD GAS PCO2 32.7 mmHg (35-45); ARTERIAL BLOOD GAS pH 7.39 (7.35-7.45)
--- NOTE | 2019-03-20 19:15 | NUR ---
Bedside report given to Candida POLO. Medication drips verified with oncoming nurse at this time
[2019-03-20 22:05] LABS: HEMATOCRIT 23.5 % (37.0-47.0); HEMOGLOBIN 7.8 g/dl (12.5-16.0)
[2019-03-21] VITALS (1346 sets, daily range): BP systolic 85–163; BP diastolic 50–103; PULSE 79–127; TEMP 98.3–99.5; O2SAT 75–100
--- NOTE | 2019-03-21 02:00 | NUR ---
DRESSING ON 2 LAP SITES CHANGED, SOME DRAINAGED NOTED. NOW CLEAN, DRY AND INTACT.
--- NOTE | 2019-03-21 03:13 | NUR ---
THIS RN IS REVIEWING PT'S LAB RESULT, THIS DEER FARM WORKER NOTICED THAT PT'S HEMOGLOBIN AT 2200 WAS 7.8. E [facility]ARE NOTIFIED AND PT RECEIVED A LOT OF FLUIDS, WILL CONTINUE TO MONITOR OF NOW LONG PT IS ASYMPTOMATIC. FLUID WAS ALSO DECRESED TO 75 ML/HR PER MEDICAL SERVICE TECHNICIAN. WILL CONTINUE MONITORING.
[2019-03-21 05:15] LABS: MEAN CELL VOLUME 88 fl (80.0-100.0); MEAN CORPUSCULAR HGB CONC 33 g/dl (33.0-37.0); PLATELET COUNT 65 K/mm3 (130-400); RED BLOOD COUNT 2.82 M/mm3 (4.10-5.30); REDCELL DISTRIBUTION WIDTH-CV 16.9 % (11.5-14.5)
[2019-03-21 05:25] LABS: ALBUMIN 2.2 gm/dL (3.5-5.0); BILIRUBIN,TOTAL 0.4 mg/dL (0.0-1.0); CALCIUM 7.1 mg/dL (8.4-10.2); CREATININE, serum 0.53 (0.52-1.25); MAGNESIUM 1.9 mg/dL (1.6-2.3); PHOSPHOROUS 1.6 mg/dL (2.5-4.5); POTASSIUM 3.2 mmol/L (3.4-5.0); TOTAL PROTEIN 4.4 gm/dL (6.4-8.2)
[2019-03-21 05:36] LABS: HEMATOCRIT 24.9 % (37.0-47.0); HEMOGLOBIN 8.3 g/dl (12.5-16.0); MEAN CORPUSCULAR HEMOGLOBIN 29 pg (27.0-31.0)
--- NOTE | 2019-03-21 06:01 | NUR ---
potassium of 3.2 reported to [facility], awaiting for orders.
[2019-03-21 06:08] LABS: ANISOCYTOSIS 1+; EOSINOPHIL 2 % (0-4); LYMPHOCYTE 8 % (20.0-51.0); NEUTROPHILS 79 % (42.0-75.2); NUCLEATED RED BLOOD CELL 1 (0-6); PLATELET ESTIMATE DECREASED (NORMAL)
--- NOTE | 2019-03-21 06:13 | NUR ---
PT ON WEANING TRIAL JENARO WELL WITH NO DISTRESS NOTED WILL LET DAY SHIFT RT KNOW OF WEANING TRIAL.
--- NOTE | 2019-03-21 08:00 | NUR ---
PT ALERT THIS AM, CURRENTLY BREATHING ON HER OWN ON VENT. PT IS MOSTLY CALM WITH INTERMITTENT RESTLESSNESS. PT ABLE TO NOD YES/NO TO QUESTIONS. PLAN THIS AM IS TO EXTUBATE. 1020: PT EXTUBATED, MOUTH SUCTIONED, AND PLACED ON OXY MASK 4.5L. PT TOLERATED EXTUBATION WELL. PT ONLY C/O HEADACHE AND BACK ACHE. PROVIDER ORDERED MORPHINE DOSE.
[2019-03-21 08:28] LABS: ARTERIAL BLD GAS O2 SATURATION 96.8 % (92-100); ARTERIAL BLD GAS TCO2 CT 23.6; ARTERIAL BLOOD GAS BASE EXCESS -1.5 (-2-2); ARTERIAL BLOOD GAS HCO3 22.5 meq/L (22-26); ARTERIAL BLOOD GAS PCO2 35.1 mmHg (35-45); ARTERIAL BLOOD GAS pH 7.43 (7.35-7.45)
--- NOTE | 2019-03-21 11:00 | NUR ---
PT EXTUBATED AT [address] GUERRERO. PT SUCTIONED VIA ETT AND ORALLY PRIOR TO EXTUBATION. PT EXTUBATED AND PLACED ON 5L O2 VIA OXYMASK. JENARO WELL. BLBS EQUAL AND COARSE AND EXPIRATORY WHEEZES THROUGHOUT. NO STRIDOR NOTED AND PT HAS BEEN ABLE TO TALK AND COUGH POST EXTUBATION. PT GIVEN DUONEB TX WITH SOME IMPROVEMENT IN WHEEZING POST TX. VSS AND WILL CONTINUE TO MONITOR PT.
[2019-03-21 11:19] LABS: ARTERIAL BLD GAS O2 SATURATION 92.2 % (92-100); ARTERIAL BLD GAS TCO2 CT 24.5; ARTERIAL BLOOD GAS BASE EXCESS -2.4 (-2-2); ARTERIAL BLOOD GAS HCO3 23.2 meq/L (22-26); ARTERIAL BLOOD GAS PCO2 43.2 mmHg (35-45); ARTERIAL BLOOD GAS PO2 61.1 mmHg (80-100); ARTERIAL BLOOD GAS pH 7.35 (7.35-7.45)
[2019-03-21 11:19] LABS: ARTERIAL BLD GAS O2 SATURATION 95.7 % (92-100); ARTERIAL BLD GAS TCO2 CT 24.3; ARTERIAL BLOOD GAS BASE EXCESS -2.4 (-2-2); ARTERIAL BLOOD GAS PCO2 42.2 mmHg (35-45); ARTERIAL BLOOD GAS PO2 83.7 mmHg (80-100); ARTERIAL BLOOD GAS pH 7.35 (7.35-7.45)
--- NOTE | 2019-03-21 12:00 | NUR ---
PT RESTLESS AND C/O OF PAIN IN BILAT LEGS, MORE ON RIGHT THAN THE LEFT. PT STATES THE PAIN IS 10/10 AND DESCRIBED SHARP AND FEELS LIKE A BLOOD CLOT. PROVIDER NOTIFIED. PT HAS BEEN ADMINISTERED MORPHINE WHICH HAS NOT DECREASED THE PAIN.
--- NOTE | 2019-03-21 13:30 | NUR ---
DR GUERRERO IN ROOM AND PT PULLED OUT ARTERIAL LINE. PRESSURE HELD AND PRESSURE DRRESSING APPLIED. PT TO BE REINTUBATED. RT CALLED, ANESTHESIA CALLED, DR GUERRERO STILL IN PT ROOM.
--- NOTE | 2019-03-21 14:50 | NUR ---
PT INTUBATED AT 1344 BY CHANCE VILLATORO WITH A SIZE 7.5 ETT SECURED TO 22 CM AT THE LIPS. +BLBS, +COLOR CHANGE WITH CAP, AND XRAY ORDERED. ETT PULLED BACK TO 21 CM AT THE LIPS AFTER XRAY PER DR GUERRERO ORDERS. +BLBS EQUAL. PT PLACED ON VENT SETTINGS PER DR GUERRERO. JENARO WELL. ABG ORDERED FOR 1600. WILL CONTINUE TO MONITOR.
[2019-03-21 15:18] LABS: HEMATOCRIT 28.6 % (37.0-47.0); HEMOGLOBIN 9.2 g/dl (12.5-16.0)
[2019-03-21 16:23] LABS: ARTERIAL BLD GAS O2 SATURATION 96.5 % (92-100); ARTERIAL BLD GAS TCO2 CT 25.1; ARTERIAL BLOOD GAS BASE EXCESS -0.1 (-2-2); ARTERIAL BLOOD GAS PCO2 36.6 mmHg (35-45); ARTERIAL BLOOD GAS PO2 86.6 mmHg (80-100); ARTERIAL BLOOD GAS pH 7.44 (7.35-7.45)
--- NOTE | 2019-03-21 17:15 | NUR ---
PT RESTLESS AND REACHING FOR ET TUBE; DUE TO NEEDS FOR PT SAFETY, SEDATION VACATION NOT CONDUCTED.
[2019-03-21 18:22] LABS: CALCIUM 7.8 mg/dL (8.4-10.2); CREATININE, serum 0.54 (0.52-1.25); MAGNESIUM 1.9 mg/dL (1.6-2.3); PHOSPHOROUS 2.7 mg/dL (2.5-4.5); POTASSIUM 4.2 mmol/L (3.4-5.0)
--- NOTE | 2019-03-21 18:30 | NUR ---
PT BP IS DECRASED BEFORE AND AFTER ADJUSTING NIBP CUFF. 1834: AWAITING LAB RESULTS FROM [facility] 1837: CONTACTED DR GUERRERO INFORMING PT DECREASE OF BP, LAB RESULTS, ABG RESULTS, AND DAILY RESULT OF PT'S INTAKE AND OUTPUT. DR GUERRERO GAVE PHONE ORDERS FOR LR, MAG, VENT CHANGES, AND TAKE H&H NOW.
[2019-03-21 19:22] LABS: HEMOGLOBIN 7.8 g/dl (12.5-16.0)
--- NOTE | 2019-03-21 19:37 | NUR ---
CALLED DR. GUERRERO TO [facility] REGARDING PT'S H&H RESULT, LEFT A VOICE MESSAGE. AWAITING FOR CALL BACK.
--- NOTE | 2019-03-21 22:03 | NUR ---
BP LOW AT 93/56.
[2019-03-22] VITALS (1262 sets, daily range): BP systolic 93–148; BP diastolic 50–87; PULSE 79–110; TEMP 98.3–100; O2SAT 67–100
--- NOTE | 2019-03-22 01:09 | NUR ---
DRESSING ON MID ABDOMEN LAP SITE CHANGED. A LIITLE BIT OF SEROSANGUINOUS DRAINAGE NOTED. NOW CLEAN, DRY AND INTACT.
--- NOTE | 2019-03-22 05:05 | NUR ---
NO SEDATION VACATION PT IS ALREADY AWAKE AND FOLLOWING COMMANDS.
[2019-03-22 05:26] LABS: ARTERIAL BLD GAS TCO2 CT 26.1; ARTERIAL BLOOD GAS BASE EXCESS 0.9 (-2-2); ARTERIAL BLOOD GAS HCO3 24.9 meq/L (22-26); ARTERIAL BLOOD GAS PCO2 37.3 mmHg (35-45); ARTERIAL BLOOD GAS PO2 117.5 mmHg (80-100); ARTERIAL BLOOD GAS pH 7.44 (7.35-7.45)
[2019-03-22 05:36] LABS: HEMOGLOBIN 8.6 g/dl (12.5-16.0)
--- NOTE | 2019-03-22 05:43 | NUR ---
hemoglobin came back at 8.6, results reported to [facility].
[2019-03-22 05:44] LABS: CALCIUM 7.7 mg/dL (8.4-10.2); CREATININE, serum 0.48 (0.52-1.25); POTASSIUM 3.8 mmol/L (3.4-5.0)
--- NOTE | 2019-03-22 06:35 | NUR ---
PT NOT ON WEANING TRIAL HAS NOT BEEN INTUBATED FOR OVER 24 HOURS.
[2019-03-22 07:30] LABS: MEAN CELL VOLUME 91 fl (80.0-100.0); MEAN CORPUSCULAR HGB CONC 32 g/dl (33.0-37.0); MEAN PLATELET VOLUME 11.4 fl (7.4-10.4); PLATELET COUNT 93 K/mm3 (130-400); RED BLOOD COUNT 2.95 M/mm3 (4.10-5.30); REDCELL DISTRIBUTION WIDTH-CV 16.5 % (11.5-14.5)
--- NOTE | 2019-03-22 07:30 | NUR ---
PT FOLLOWING COMMANDS, VSS. ABD LAP SITE DRESSINGS ARE CDI. ABD IS MORE SOFT THAN ON 03/21/19. BOWEL SOUNDS REMAIN HYPOACTIVE WITH ONLY ONE SOUND IN RIGHT LOWER QUADRANT. RADIAL AND PEDAL PULSES ARE STRONG. VSS. 0830: PT'S SISTER IS BEDSIDE.
[2019-03-22 07:41] LABS: HEMATOCRIT 26.9 % (37.0-47.0); HEMOGLOBIN 8.6 g/dl (12.5-16.0); MEAN CORPUSCULAR HEMOGLOBIN 29 pg (27.0-31.0)
[2019-03-22 08:27] LABS: ANISOCYTOSIS 1+; EOSINOPHIL 1 % (0-4); LYMPHOCYTE 8 % (20.0-51.0); NEUTROPHILS 78 % (42.0-75.2); PLATELET ESTIMATE DECREASED (NORMAL)
--- NOTE | 2019-03-22 16:30 | NUR ---
PT ON SEDATION VACATION. PROPOFOL CUT IN HARSHA FROM 40 TO 20MCG. FENTANYL CUT FROM 150 TO 100 MCG. 1715: SPEAKING WITH , HE WISHES THAT AT/AROUND SHIFT CHANGE AT 1900 THIS EVENING TO CUT PTS FENTANYL TO 50MCG/HR SINCE PT VSS. 1730: SEDATION VACATION END. PT TOLERATED WELL. FENTANYL WILL REMAIN AT 100MCG, BUT PROPOFOL WILL GO TO 25MCG.
--- NOTE | 2019-03-22 18:15 | NUR ---
2062-0234: PT INCREASINGLY RESTLESS. PT NODS YES THAT SHE IS HOT AND HAS PAIN IN ABD. FENTANYL AND PROPOFOL INCREASED AND ROOM FAN TURNED ON. WILL CONTINUE TO MONITOR.
--- NOTE | 2019-03-22 19:10 | NUR ---
REPORT GIVEN TO MELANI VALLE.
--- NOTE | 2019-03-22 19:30 | NUR ---
Pt agitated, trying to sit up and pull at ET tube and PICC lines. Tired to comfort pt and get her to relax. Mitt applied to R hand. Will continue to monitor closely.
[2019-03-22 20:17] LABS: HEMATOCRIT 29.4 % (37.0-47.0); HEMOGLOBIN 9.4 g/dl (12.5-16.0)
[2019-03-22 20:34] LABS: MAGNESIUM 1.6 mg/dL (1.6-2.3)
[2019-03-22 20:41] LABS: PHOSPHOROUS 4.2 mg/dL (2.5-4.5)
[2019-03-22 21:01] LABS: ARTERIAL BLD GAS O2 SATURATION 98.5 % (92-100); ARTERIAL BLD GAS TCO2 CT 30.3; ARTERIAL BLOOD GAS BASE EXCESS 3.4 (-2-2); ARTERIAL BLOOD GAS HCO3 28.8 meq/L (22-26); ARTERIAL BLOOD GAS PCO2 47.8 mmHg (35-45)
[2019-03-22 21:02] LABS: ARTERIAL BLOOD GAS PO2 131.5 mmHg (80-100)
[2019-03-23] VITALS (769 sets, daily range): BP systolic 104–147; BP diastolic 65–84; PULSE 88–108; TEMP 99.5–99.8; O2SAT 36–100
--- NOTE | 2019-03-23 04:40 | NUR ---
Discussed with claims customer service representative and RT regarding Pt's weaning trial. Pt has hx of becoming very anxious, hypertensive, and tachycardic when weaning Vent and sedation. Will wait until is on the floor to begin weaning trial, so Pt will not be unsedated for an extended period of time. Will endorse to day RN and RT. Will contiue with sedation vacation as ordered to assess neuro status. Will continue to monitor.
[2019-03-23 04:47] LABS: ARTERIAL BLD GAS O2 SATURATION 92.9 % (92-100); ARTERIAL BLOOD GAS BASE EXCESS 4.8 (-2-2); ARTERIAL BLOOD GAS HCO3 29.6 meq/L (22-26); ARTERIAL BLOOD GAS PCO2 45.5 mmHg (35-45); ARTERIAL BLOOD GAS PO2 63.9 mmHg (80-100); ARTERIAL BLOOD GAS pH 7.43 (7.35-7.45)
--- NOTE | 2019-03-23 05:16 | NUR ---
Prior to vacation sedation Pt still responds to voice and follows some commands. Sedation vacation started at 0455. Pt able to follow commonds. Pt tracking to voice. Pt answering yes/no questions appropriately. 0510 Sedation returned to prior rates. Will endorse to day RN and to start weaning trial once is on the floor. Will continue to monitor.
[2019-03-23 05:37] LABS: MEAN CELL VOLUME 92 fl (80.0-100.0); MEAN CORPUSCULAR HGB CONC 32 g/dl (33.0-37.0); MEAN PLATELET VOLUME 10.9 fl (7.4-10.4); PLATELET COUNT 147 K/mm3 (130-400); RED BLOOD COUNT 3.06 M/mm3 (4.10-5.30); REDCELL DISTRIBUTION WIDTH-CV 16.5 % (11.5-14.5)
[2019-03-23 05:38] LABS: HEMOGLOBIN 8.9 g/dl (12.5-16.0); MEAN CORPUSCULAR HEMOGLOBIN 29 pg (27.0-31.0)
[2019-03-23 05:48] LABS: CALCIUM 8.5 mg/dL (8.4-10.2); CREATININE, serum 0.49 (0.52-1.25); POTASSIUM 3.9 mmol/L (3.4-5.0)
--- NOTE | 2019-03-23 05:49 | NUR ---
DOING WEANING TRIAL WHEN DOCTOR YOLANDA IS IN HOUSE TO HAVE BETTER EFFECT FOR THE PATIENT. NURSE AND THIS RT AGREE. WILL NOTIFY DAY SHIFT RT ABOUT WEANING TRIAL NOT BEING DONE. PT IS ON DOCUMENTED SETTINGS JENARO WELL AND NO DISTRESS NOTED AT THIS TIME
[2019-03-23 05:58] LABS: ANISOCYTOSIS 1+; EOSINOPHIL 3 % (0-4); HYPOCHROMIA 3+; LYMPHOCYTE 6 % (20.0-51.0); NEUTROPHILS 80 % (42.0-75.2); PLATELET ESTIMATE NORMAL (NORMAL)
--- NOTE | 2019-03-23 07:00 | NUR ---
recieved report from MELANI Jhaveri.
--- NOTE | 2019-03-23 07:30 | NUR ---
at pt bedside and ordered for CPAP trial to begin.
[2019-03-23 09:12] LABS: ARTERIAL BLD GAS O2 SATURATION 93.5 % (92-100); ARTERIAL BLD GAS TCO2 CT 25.3; ARTERIAL BLOOD GAS BASE EXCESS 0.3 (-2-2); ARTERIAL BLOOD GAS HCO3 24.2 meq/L (22-26); ARTERIAL BLOOD GAS PCO2 36.3 mmHg (35-45); ARTERIAL BLOOD GAS PO2 64.9 mmHg (80-100); ARTERIAL BLOOD GAS pH 7.44 (7.35-7.45)
--- NOTE | 2019-03-23 09:15 | NUR ---
Fentanyl and propofol held pending ABG results to extubate pt.
--- NOTE | 2019-03-23 09:30 | NUR ---
WILL WAIT UNTIL ECHO IS DONE FOR EXTUBATION. RN WILL CALL.
--- NOTE | 2019-03-23 10:30 | NUR ---
PT EXTUBATED PER . PLACED ON 6 LPM OXYMASK. PT COUGHING UP SMALL TO MOD AMTS FOAMY WHITISH SECRETIONS. PT ABLE TO SUCTION SELF W/O DIFFICULTY.
--- NOTE | 2019-03-23 13:45 | NUR ---
The patient is extubated. CLOSED CIRCUIT SCREEN WATCHER student met with the patient to discuss a discharge plan. At this time physical therapy is recommending home but they will continue to monitor. The patient does not have advanced directives in the EMR but was interested in obtaining a DPOA-HC form. CLOSED CIRCUIT SCREEN WATCHER student provided the form. rn support services will continue to follow to ensure a safe discharge.
[2019-03-23 15:00] LABS: ARTERIAL BLD GAS O2 SATURATION 93.7 % (92-100); ARTERIAL BLD GAS TCO2 CT 29.1; ARTERIAL BLOOD GAS BASE EXCESS 3.8 (-2-2); ARTERIAL BLOOD GAS HCO3 27.9 meq/L (22-26); ARTERIAL BLOOD GAS PCO2 40.1 mmHg (35-45); ARTERIAL BLOOD GAS PO2 64.8 mmHg (80-100); ARTERIAL BLOOD GAS pH 7.46 (7.35-7.45)
--- NOTE | 2019-03-23 19:45 | NUR ---
Gave report to MELANI Figueroa.
[2019-03-24] VITALS (1363 sets, daily range): BP systolic 133–155; BP diastolic 72–94; PULSE 92–118; TEMP 98.7–99.9; O2SAT 56–100
[2019-03-24 05:42] LABS: MEAN CELL VOLUME 91 fl (80.0-100.0); MEAN CORPUSCULAR HGB CONC 32 g/dl (33.0-37.0); MEAN PLATELET VOLUME 10.6 fl (7.4-10.4); PLATELET COUNT 226 K/mm3 (130-400); RED BLOOD COUNT 3.36 M/mm3 (4.10-5.30); REDCELL DISTRIBUTION WIDTH-CV 15.9 % (11.5-14.5)
[2019-03-24 05:44] LABS: HEMATOCRIT 30.6 % (37.0-47.0); HEMOGLOBIN 9.8 g/dl (12.5-16.0); MEAN CORPUSCULAR HEMOGLOBIN 29 pg (27.0-31.0)
[2019-03-24 05:59] LABS: ANISOCYTOSIS 1+; EOSINOPHIL 1 % (0-4); HYPOCHROMIA 1+; LYMPHOCYTE 12 % (20.0-51.0); MYELOCYTE 1 % (0-0); NEUTROPHILS 76 % (42.0-75.2); PLATELET ESTIMATE NORMAL (NORMAL)
[2019-03-24 06:00] LABS: CALCIUM 9.2 mg/dL (8.4-10.2); CREATININE, serum 0.49 (0.52-1.25); POTASSIUM 3.6 mmol/L (3.4-5.0)
--- NOTE | 2019-03-24 07:10 | NUR ---
Report received from Carolina POLO and care resumed.
--- NOTE | 2019-03-24 08:05 | NUR ---
Dr Roldan in to see pt at this time. Pt very anxious and restless. Dr Roldan stated will readdress meds. Will continue to follow.
--- NOTE | 2019-03-24 09:30 | NUR ---
Dr Peterson in to see pt at this time. New orders received. Will continue to follow.
--- NOTE | 2019-03-24 19:04 | NUR ---
Report given to Candida POLO and care transfered.
[2019-03-25] VITALS (559 sets, daily range): BP systolic 135–152; BP diastolic 75–96; PULSE 100–107; TEMP 97.8–99.2; O2SAT 54–99
[2019-03-25 06:28] LABS: HEMOGLOBIN 10.2 g/dl (12.5-16.0); MEAN CELL VOLUME 93 fl (80.0-100.0); MEAN CORPUSCULAR HEMOGLOBIN 29 pg (27.0-31.0); MEAN CORPUSCULAR HGB CONC 31 g/dl (33.0-37.0); MEAN PLATELET VOLUME 10.8 fl (7.4-10.4); PLATELET COUNT 292 K/mm3 (130-400); RED BLOOD COUNT 3.52 M/mm3 (4.10-5.30); REDCELL DISTRIBUTION WIDTH-CV 15.7 % (11.5-14.5)
[2019-03-25 06:32] LABS: HEMATOCRIT 32.7 % (37.0-47.0)
[2019-03-25 06:50] LABS: ALBUMIN 3.3 gm/dL (3.5-5.0); BILIRUBIN,TOTAL 3.9 mg/dL (0.0-1.0); CALCIUM 9.3 mg/dL (8.4-10.2); CREATININE, serum 0.48 (0.52-1.25); MAGNESIUM 1.8 mg/dL (1.6-2.3); PHOSPHOROUS 3.9 mg/dL (2.5-4.5); POTASSIUM 3.8 mmol/L (3.4-5.0); TOTAL PROTEIN 6.3 gm/dL (6.4-8.2)
[2019-03-25 06:57] LABS: PRE ALBUMIN 11.7 mg/dL (17.6-36.0)
--- NOTE | 2019-03-25 07:04 | NUR ---
Report received from Candida POLO and care resumed.
[2019-03-25 07:36] LABS: BAND 8 % (0-10); EOSINOPHIL 1 % (0-4); METAMYELOCYTE 1 % (0-0); NEUTROPHILS 75 % (42.0-75.2); PLATELET ESTIMATE NORMAL (NORMAL)
[2019-03-25 07:38] LABS: LYMPHOCYTE 7 % (20.0-51.0)
--- NOTE | 2019-03-25 08:06 | NUR ---
Dr Ruby in to see pt at this time and updated on pt status.
--- NOTE | 2019-03-25 09:00 | NUR ---
Dr Rosario in to see pt at this time. Plan will be to transfer to floor.
--- NOTE | 2019-03-25 10:17 | NUR ---
Report called to Elizabeth POLO on surgical floor. Pt to transfer to room 322-2.
--- NOTE | 2019-03-25 10:53 | NUR ---
Pt taken to room 322-2 per wheelchair with chart and belongings. Daughter was present. Bedside update given to Elizabeth POLO.
--- NOTE | 2019-03-25 14:00 | NUR ---
Patient alert and oriented, answers questions appropriately, appears anxious. See assessment. Lungs coarse in bases, clear in upper lobes. Oxygen at 3l/nc. PICC in place to RUE, TPN infusing, lines flushed, blood return noted. Abdomen soft, non tender, non distended. Bowel sounds active x4 quads. +Flatus. Abdomen lap sites with edges well approximated, no redness or drainage noted. Lee catheter in place and draining clear yellow urine. Patient attempted ambulation, only able to take few steps, gait stead, generalized weakness noted. No other c/o at this time.
[2019-03-25 15:42] LABS: ALBUMIN 3.5 gm/dL (3.5-5.0); BILIRUBIN UNCONJUGATED 1.4 mg/dL (0.0-1.1); BILIRUBIN,DIRECT 3.1 mg/dL (0.0-0.4); BILIRUBIN,TOTAL 4.5 mg/dL (0.0-1.0); TOTAL PROTEIN 6.8 gm/dL (6.4-8.2)
--- NOTE | 2019-03-25 21:37 | NUR ---
Patient reports abdominal pain 02/10, medicated with [place] 10 at this time as well as Xanax for anxiety. Has a productive cough with white phlegm. Wearing oxygen at 3L/nc. Lee to BSD with yellow urine. Wearing SCD's. Wants to shower. Has PICC to right upper arm with Zosyn infusing.
--- NOTE | 2019-03-25 22:00 | NUR ---
Daughter assists pt with dry shampoo cap. Will wait for shower til the morning.
[2019-03-26] VITALS (8 sets, daily range): BP systolic 87–128; BP diastolic 49–86; PULSE 78–102; TEMP 97.4–98.6
--- NOTE | 2019-03-26 01:45 | NUR ---
Pt drowsy, wants pain meds. Medicated with [place] 10 at this time for pain 8/10 to abdomen.
--- NOTE | 2019-03-26 06:05 | NUR ---
Medicated with [place] 10 at this time for pain 8/10 to abdomen. Lab work obtained and Zosyn infusing to right PICC without problem.
[2019-03-26 07:06] LABS: HEMOGLOBIN 10.3 g/dl (12.5-16.0); MEAN CELL VOLUME 93 fl (80.0-100.0); MEAN CORPUSCULAR HEMOGLOBIN 29 pg (27.0-31.0); MEAN CORPUSCULAR HGB CONC 31 g/dl (33.0-37.0); MEAN PLATELET VOLUME 10.8 fl (7.4-10.4); PLATELET COUNT 337 K/mm3 (130-400); RED BLOOD COUNT 3.54 M/mm3 (4.10-5.30); REDCELL DISTRIBUTION WIDTH-CV 15.8 % (11.5-14.5)
[2019-03-26 07:35] LABS: ALBUMIN 3.2 gm/dL (3.5-5.0); BILIRUBIN,TOTAL 2.6 mg/dL (0.0-1.0); CALCIUM 9.2 mg/dL (8.4-10.2); CREATININE, serum 0.55 (0.52-1.25); TOTAL PROTEIN 6.3 gm/dL (6.4-8.2)
[2019-03-26 07:49] LABS: BAND 15 % (0-10); EOSINOPHIL 3 % (0-4); LYMPHOCYTE 11 % (20.0-51.0); NEUTROPHILS 65 % (42.0-75.2)
[2019-03-26 07:50] LABS: PLATELET ESTIMATE NORMAL (NORMAL)
--- NOTE | 2019-03-26 08:00 | NUR ---
UPON ENTRY TO THE ROOM THE PATIENT IS RESTING IN BED WITH DAUGHTER PRESENT AT THE BEDSIDE. PATIENT APPEARS LETHARGIC AND STATES THAT SHE FEEL WEAK. PATIENT IS A&OX4. TACHYCARDIA NOTED, OTHERWISE VSS. TELE IN PLACE. PATIENT STATES THAT SHE FEELS SOB ALL THE TIME. PURSE-LIP BREATHING NOTED. EXPIRATORY WHEEZES AUSCULTATED OVER ALL LUNG MELISSA. BILATERAL LOWER LUNG MELISSA COARSE UPON AUSCULTATION. PATIENT HAS A PRODUCTIVE COUGH WITH A YONKER AND SUCTION AT THE BEDSIDE. O2 AT 3L VIA NASAL CANNULA. BOWEL SOUNDS ACTIVE ALL FOUR QUADRANTS. PATIENT TOLERATING DIET WITHOUT ANY COMPLAINTS OF N/V. ABDOMINAL LAP SITES X3 ELECTRICAL PANEL BUILDER WITH EDGES WELL APPROXIMATED. ECCHYMOSIS TO ABDOMEN NOTED. ABDOMEN IS DISTENDED, BUT SOFT UPON PALPATION. ECCHYMOSIS TO LATERAL HIPS BILATERALLY. PICC LINE TO RUE. INDWELLING GUAMAN CATHETER TO DEPENDENT DRAINAGE WIH CLEAR, YELLOW URINE PRESENT IN GUAMAN BAG. POSITIVE PEDAL PULSES EQUAL BILATERALLY. CALL LIGHT WITHIN REACH. PATIENT DENIES ANY NEEDS AT THIS TIME.
--- NOTE | 2019-03-26 12:47 | NUR ---
Lee discontinued at 0940 as ordered. Patient tolerated well and voiding without difficulty.
--- NOTE | 2019-03-26 13:52 | NUR ---
Patient resting in bed. Family at bedside. Report given to primary nurse, MELANI Putnam
--- NOTE | 2019-03-26 16:39 | NUR ---
Silver Plater met with the patient and patient's daughter, Filomena to discuss discharge planning. SW discussed option of post acute rehab, per OT's recommendation. Patient is unsure and would like to have time to consider this option. Patient also has not established DPOA-HC at this time, but was interested in obtaining an additional form as Caryn BROWER provided one at an earlier time but she wasn't sure where it was located at this time. SW provided. SW will continue to follow.
--- NOTE | 2019-03-26 19:20 | NUR ---
REPORT GIVEN TO MELANI ARMENDARIZ.
--- NOTE | 2019-03-26 21:00 | NUR ---
Patient resting in bed, daughter at bedside. Is alert and oriented x4. Has right PICC, connected to IV Zosyn at this time. Patient on 3.5L/nc oxygen. Has productive cough of white sputum. Voiding without problem since catheter removed. Medicated with HS meds including [place] 10 at this time. Reports pain 7/10 to back and abdomen. Has purple bruising to right flank into right hip and left hip. Abdomen with bruising as well.
[2019-03-27 04:00] VITALS: BP 128/56; PULSE 104; TEMP 98.5
--- NOTE | 2019-03-27 04:30 | NUR ---
Medicated with [place] 10 for pain to back and abdomen 01/10.
[2019-03-27 07:15] LABS: MEAN CELL VOLUME 93 fl (80.0-100.0); MEAN CORPUSCULAR HGB CONC 31 g/dl (33.0-37.0); PLATELET COUNT 354 K/mm3 (130-400); RED BLOOD COUNT 3.32 M/mm3 (4.10-5.30); REDCELL DISTRIBUTION WIDTH-CV 15.8 % (11.5-14.5)
[2019-03-27 07:26] LABS: HEMOGLOBIN 9.6 g/dl (12.5-16.0); MEAN CORPUSCULAR HEMOGLOBIN 29 pg (27.0-31.0)
[2019-03-27 07:32] LABS: ALBUMIN 3.2 gm/dL (3.5-5.0); BILIRUBIN,TOTAL 1.6 mg/dL (0.0-1.0); CALCIUM 9.1 mg/dL (8.4-10.2); CREATININE, serum 0.59 (0.52-1.25); POTASSIUM 3.9 mmol/L (3.4-5.0); TOTAL PROTEIN 6.2 gm/dL (6.4-8.2)
[2019-03-27 07:38] VITALS: BP 117/62; PULSE 64; TEMP 98.2
[2019-03-27 07:49] LABS: BAND 11 % (0-10); EOSINOPHIL 1 % (0-4); LYMPHOCYTE 11 % (20.0-51.0); METAMYELOCYTE 1 % (0-0); MYELOCYTE 1 % (0-0); NEUTROPHILS 67 % (42.0-75.2)
[2019-03-27 07:50] LABS: PLATELET ESTIMATE NORMAL (NORMAL)
--- NOTE | 2019-03-27 09:17 | NUR ---
Medicated with [place] 10 for pain to lower back and lower abdomen, reported a 6 on a scale of 0-10.
[2019-03-27 12:00] VITALS: BP 124/95; PULSE 99; TEMP 97.3
--- NOTE | 2019-03-27 12:00 | NUR ---
PICC intact right upper arm. With sterile technique right upper arm PICC dressing change done with insertion site cleansed with ChloraPrep 1, chlorhexidine impregnated disc applied, skin prep, StatLock, and Tegaderm applied. No signs or symptoms of IV complications noted. No concerns voiced.
--- NOTE | 2019-03-27 13:37 | NUR ---
Medicated with [place] 10 for pain of 6 on a scale of 0-10 in the lower abdomen and low back. Report given to primary nurse, MELANI Davila.
[2019-03-27 15:01] VITALS: BP 125/61; PULSE 92; TEMP 98.2
--- NOTE | 2019-03-27 16:34 | NUR ---
Up to bathroom privelges, voided. Ambulated without assistance and with a steady gait.
--- NOTE | 2019-03-27 18:00 | NUR ---
Patient has been doing well today. She has been up several times to the bathroom. She has not walked in the hallways with nursing staff/students today but is moving around in the room. She stated she stopped using the walker because it was getting tangled in her O2 tubing. She is ambulating well without the walker. She is having pain, she stated it is not unusual pain for her. She take norco at home for pain as well. No complaints of nausea. No other changes at this time. Call light within reach.
--- NOTE | 2019-03-27 18:04 | NUR ---
Patient awake and alert, able to make her needs known. Family in for the afternoon. Patient did eat some of her evening meal, and reported that she has "[employer] food coming in a bit." Reported off to Lola POLO.
[2019-03-27 20:20] VITALS: BP 131/62; PULSE 93; TEMP 98
--- NOTE | 2019-03-27 20:30 | NUR ---
Assessment completed. Denies pain at this time. Respirations short inhalations with long expirations. Denies shortness of breath. Family in room at bedside. Family brought patient in a hamburger from [employer] that she is going to eat. Patient explains that on her left forearm near she has a lump and it is sore. Some bruising noted to area. Per the patient she was told that it was a clot. Explained that we will have the provider evaluate it in the morning. Patient and family agree. Patient denies further needs or concerns at this time.
--- NOTE | 2019-03-27 21:15 | NUR ---
Patient requests to use restroom to have bowel movement. Ambulates into bathroom, gait steady. Allowed patient time. Patient pulls call light once she was done. Patient short of air with activity. Returns to bed. Explains that she was able to have a bowel movement and they have been loose, probably due to antibiotics. Patient denies further concerns or needs at this time.
--- NOTE | 2019-03-27 22:43 | NUR ---
Patient requests pain pill for her chronic back pain and also a medication for anxiety, feels she is getting anxious. Administered pain medication and Xanax as prescribed. Family remains in room with the patient. Patient denies further needs at this time.
--- NOTE | 2019-03-27 23:55 | NUR ---
Lying supine in bed. Eyes open. Patient explains that her pain is better. Patient says that she feels a little more relaxed from the anxiety medication as well. Patient declines further needs or concerns at this time. Family in room with the patient.
[2019-03-28] VITALS: BP 109/58; PULSE 90; TEMP 98.2
[2019-03-28 05:21] VITALS: BP 116/68; PULSE 94; TEMP 98.3
--- NOTE | 2019-03-28 05:39 | NUR ---
Lying in bed on left side with eyes closed. Eyes open when name called. Takes a.m. meds without difficulty. Denies further needs or concerns at this time.
--- NOTE | 2019-03-28 06:44 | NUR ---
Requests pain pill for chronic back pain. Administered pain medication as prescribed. Patient would like to get a little more rest before the providers arrive. Patient says that she hopes she will get to go home today. Denies further needs at this time.
[2019-03-28 07:13] LABS: MEAN CELL VOLUME 93 fl (80.0-100.0); MEAN CORPUSCULAR HGB CONC 30 g/dl (33.0-37.0); MEAN PLATELET VOLUME 10.7 fl (7.4-10.4); PLATELET COUNT 408 K/mm3 (130-400); RED BLOOD COUNT 3.32 M/mm3 (4.10-5.30); REDCELL DISTRIBUTION WIDTH-CV 15.4 % (11.5-14.5)
[2019-03-28 07:20] LABS: HEMOGLOBIN 9.4 g/dl (12.5-16.0); MEAN CORPUSCULAR HEMOGLOBIN 28 pg (27.0-31.0)
[2019-03-28 07:33] LABS: ALBUMIN 3.4 gm/dL (3.5-5.0); BILIRUBIN,TOTAL 1.1 mg/dL (0.0-1.0); CALCIUM 9.1 mg/dL (8.4-10.2); CREATININE, serum 0.57 (0.52-1.25); TOTAL PROTEIN 6.5 gm/dL (6.4-8.2)
[2019-03-28 07:43] VITALS: BP 113/59; PULSE 93; TEMP 99.3
[2019-03-28 07:58] LABS: ANISOCYTOSIS 1+; BAND 18 % (0-10); EOSINOPHIL 2 % (0-4); HYPOCHROMIA 2+; LYMPHOCYTE 18 % (20.0-51.0); METAMYELOCYTE 1 % (0-0); NEUTROPHILS 54 % (42.0-75.2); PLATELET ESTIMATE INCREASED (NORMAL)
[2019-03-28 11:49] VITALS: BP 106/45; PULSE 85; TEMP 98.3
--- NOTE | 2019-03-28 13:00 | NUR ---
Patient is discharging home. PICC line discontinued by Daly Marinelli RN. Discharge instructions discussed with patient. Dr Ruby seen patient earlier this morning and was ok with her discharging. Patient has her follow ups scheduled with Dr Ruby, her primary and Dr Lundberg. She is calling Saturday for a follow up with Dr Dejesus. Copies of discharge instructions sent with patient. All belongings packed up and sent with patient. Patient walked out via wheel chair by Jenna GONZALEZ.
== END 2019-03-28 13:00 | disposition home or self-care (01) | DRG 208 ==
LOC: ICU 02:11 → SURG 02:11 → ICU 06:57 → SURG 03-25 11:05
PROVIDERS: Internal Medicine Pulmonary Disease; Physician Assistant; Student in an Organized Health Care Education/Training Program; ADMIT Hospitalist
PROC: 05JY3ZZ Inspection of Upper Vein, Percutaneous Approach (ICD-10-PCS; principal; 2019-03-18)
PROC: 5A1945Z Respiratory Ventilation, 24-96 Consecutive Hours (ICD-10-PCS; 2019-03-18)
PROC: B544ZZA Ultrasonography of Left Jugular Veins, Guidance (ICD-10-PCS; 2019-03-18)
PROC: B546ZZ3 Ultrasonography of Right Subclavian Vein, Intravascular (ICD-10-PCS; 2019-03-18)
PROC: 5A1945Z Respiratory Ventilation, 24-96 Consecutive Hours (ICD-10-PCS; 2019-03-21)
PROC: 0BH17EZ Insertion of Endotracheal Airway into Trachea, Via Natural or Artificial Opening (ICD-10-PCS; 2019-03-21)
DX: J95.821 Acute postprocedural respiratory failure (principal); J69.0 Pneumonitis due to inhalation of food and vomit; R57.1 Hypovolemic shock; K72.00 Acute and subacute hepatic failure without coma; K66.1 Hemoperitoneum; D65 Disseminated intravascular coagulation [defibrination syndrome]; R65.20 Severe sepsis without septic shock; T81.44XA Sepsis following a procedure, initial encounter; D62 Acute posthemorrhagic anemia; I82.612 Acute embolism and thrombosis of superficial veins of left upper extremity; E87.5 Hyperkalemia; J44.9 Chronic obstructive pulmonary disease, unspecified; Z95.810 Presence of automatic (implantable) cardiac defibrillator; G40.909 Epilepsy, unspecified, not intractable, without status epilepticus; G20 Parkinson's disease; Z87.891 Personal history of nicotine dependence; Z88.6 Allergy status to analgesic agent; E83.42 Hypomagnesemia; G89.29 Other chronic pain; F32.9 Major depressive disorder, single episode, unspecified; R53.81 Other malaise
CPT/HCPCS: 99223-AI; 99232-AI; 99233-AI; 99239; A4217; C1751; C9113; J0610; J1815; J1940; J1953; J2270; J2543; J2704; J3010; J3370; J3475; J3480; J7030; J7050; J7060; J7120; J7131; P9012; P9016

== ENCOUNTER → 2019-05-21 | Outpatient (CLI) | payer MEDICARE, OTHER ==
--- NOTE | 2019-05-18 10:43 | NUR ---
lmom of her daughter to have pt arrive at 0800 for procedure
== END ==
LOC: COL.RAD 07:46
DX: Z01.812 Encounter for preprocedural laboratory examination (principal); K76.9 Liver disease, unspecified; D18.03 Hemangioma of intra-abdominal structures
CPT/HCPCS: A9585

== ENCOUNTER → 2019-06-09 | Outpatient (CLI) | payer MEDICARE, OTHER | LOC: MHCPAIN 10:13 | DX: M47.817 Spondylosis without myelopathy or radiculopathy, lumbosacral region (principal); M53.3 Sacrococcygeal disorders, not elsewhere classified | CPT/HCPCS: G0463 ==

== ENCOUNTER → 2019-10-27 | Outpatient (CLI) | payer MEDICARE, OTHER | LOC: MHCPAIN 10:09 | DX: M47.816 Spondylosis without myelopathy or radiculopathy, lumbar region (principal); M54.5 Low back pain; M54.2 Cervicalgia; G89.29 Other chronic pain | CPT/HCPCS: G0463 ==

== ENCOUNTER → 2020-01-27 | Outpatient (CLI) | payer MEDICARE, OTHER | LOC: MHCPAIN 10:51 | DX: M47.812 Spondylosis without myelopathy or radiculopathy, cervical region (principal); M54.2 Cervicalgia; M54.5 Low back pain; G89.29 Other chronic pain; M54.12 Radiculopathy, cervical region | CPT/HCPCS: G0463 ==

== ENCOUNTER → 2020-01-28 | Outpatient (CLI) | payer MEDICARE, OTHER | LOC: MHCPAIN 13:10 | DX: M47.812 Spondylosis without myelopathy or radiculopathy, cervical region (principal); M54.2 Cervicalgia; M54.12 Radiculopathy, cervical region | CPT/HCPCS: J1100; Q9967 ==

== ENCOUNTER → 2020-04-04 | Outpatient (CLI) | payer MEDICARE, OTHER | LOC: COL.RAD 02-03 10:30 | DX: G31.9 Degenerative disease of nervous system, unspecified (principal); G20 Parkinson's disease; E55.9 Vitamin D deficiency, unspecified; G24.3 Spasmodic torticollis; G43.709 Chronic migraine without aura, not intractable, without status migrainosus; G40.309 Generalized idiopathic epilepsy and epileptic syndromes, not intractable, without status epilepticus ==

== ENCOUNTER → 2020-04-20 | Outpatient (CLI) | payer MEDICARE, OTHER | LOC: MHCPAIN 10:10 | DX: M47.818 Spondylosis without myelopathy or radiculopathy, sacral and sacrococcygeal region (principal); M54.2 Cervicalgia; M54.5 Low back pain; M53.3 Sacrococcygeal disorders, not elsewhere classified; G89.29 Other chronic pain | CPT/HCPCS: G0463 ==

== ENCOUNTER → 2020-07-20 | Outpatient (CLI) | payer MEDICARE, OTHER ==
[~2020-07-20] MED LIST changes: +ADVIL200 MG PO; +AJOVY225 MG/1.5 SQ; +ASPIRIN E.C. 8181 MG PO; +ATARAX 10MG10 MG/TAB PO; +BROVANA15 MCG/2 M IH; +DOXYCYCLINE 10100 MG PO; +MOTRIN 600600 MG/TAB PO; +ONE-A-DAY ESSE1 EACH PO; +PREDNISONE 5MG5 MG
== END ==
LOC: MHCPAIN 05-05 16:56
DX: M47.817 Spondylosis without myelopathy or radiculopathy, lumbosacral region (principal); M48.12 Ankylosing hyperostosis [Forestier], cervical region; M54.2 Cervicalgia; M54.5 Low back pain
CPT/HCPCS: G0463

== ENCOUNTER → 2020-07-28 | Outpatient (CLI) | payer MEDICARE, OTHER | LOC: MHCPAIN 08:13 | DX: M47.818 Spondylosis without myelopathy or radiculopathy, sacral and sacrococcygeal region (principal); M53.3 Sacrococcygeal disorders, not elsewhere classified | CPT/HCPCS: G0260; J1040; Q9967 ==

== ENCOUNTER → 2020-08-23 | Outpatient (CLI) | payer MEDICARE, OTHER | LOC: COL.RAD 09:34 | DX: I72.0 Aneurysm of carotid artery (principal) | CPT/HCPCS: Q9967 ==

== ENCOUNTER 2020-09-20 08:54 | Day surgery (SDC) | payer MEDICARE, OTHER ==
[~2020-09-20] VITALS: Ht 160 cm; Wt 71.4 kg
[~2020-09-20 08:54] MED LIST changes: -ADVIL200 MG PO; -AJOVY225 MG/1.5 SQ; -ASPIRIN E.C. 8181 MG PO; -ATARAX 10MG10 MG/TAB PO; -BROVANA15 MCG/2 M IH; -DOXYCYCLINE 10100 MG PO; -MOTRIN 600600 MG/TAB PO; -ONE-A-DAY ESSE1 EACH PO; -PREDNISONE 5MG5 MG
[2020-09-20 09:35] VITALS: BP 123/71; PULSE 86; TEMP 98.5
[2020-09-20] MEDS ORDERED: ASPIRIN E.C. 8181 MG PO (09:56)
[2020-09-20] MEDS ORDERED: ATARAX 10MG10 MG/TAB PO (09:56)
[2020-09-20] MEDS ORDERED: ONE-A-DAY ESSE1 EACH PO (09:57)
[2020-09-20] MEDS ORDERED: ADVIL200 MG PO (09:58)
[2020-09-20] MEDS ORDERED: AJOVY225 MG/1.5 SQ (09:59)
--- NOTE | 2020-09-20 10:02 | NUR ---
TO RM 6 AT 0904- CALL LIGHT IN REACH WILL CALL DAUGHTER FOR RIDE HOME
[2020-09-20 11:56] VITALS: BP 116/55; PULSE 81; TEMP 98.3
--- NOTE | 2020-09-20 11:56 | NUR ---
TO RM 6 PER CART FROM OR. ALERT ORIENTED X3, TALKING TO STAFF. RECEIVED PEPSI AND TOLERATED WELL. INCISIONS CLEAN DRY INTACT. DENIES PAIN OR DISCOMFORT. DENIES NAUSEA.
[2020-09-20 12:15] VITALS: BP 110/64; PULSE 80
--- NOTE | 2020-09-20 12:15 | NUR ---
DRANK 100% AND TOLERATED WELL.
[2020-09-20] MEDS ORDERED: MOTRIN 600600 MG/TAB PO (12:23)
[2020-09-20 12:30] VITALS: BP 116/59; PULSE 80
[2020-09-20 12:45] VITALS: BP 107/51; PULSE 80
--- NOTE | 2020-09-20 12:45 | NUR ---
PATIENT STATED SHE WAS READY TO GO HOME.
--- NOTE | 2020-09-20 12:55 | NUR ---
RECEIVED DISCHARGE INSTRUCTIONS AND VERBALIZED UNDERSTANDING. DISCONTINUED IV AND INT- CATHETER INTACT.
--- NOTE | 2020-09-20 13:01 | NUR ---
DISCHARGED PER WC BY NURSING STAFF TO PRIVATE CAR IN CARE OF DAUGHTER NAHUN.
== END 2020-09-20 13:41 | disposition home or self-care (01) ==
LOC: SDCO 08:54
DX: D17.24 Benign lipomatous neoplasm of skin and subcutaneous tissue of left leg (principal); Z79.82 Long term (current) use of aspirin; J44.9 Chronic obstructive pulmonary disease, unspecified; G89.29 Other chronic pain; M54.5 Low back pain; G20 Parkinson's disease; F32.9 Major depressive disorder, single episode, unspecified; G43.909 Migraine, unspecified, not intractable, without status migrainosus; F41.9 Anxiety disorder, unspecified; M19.90 Unspecified osteoarthritis, unspecified site; I10 Essential (primary) hypertension; Z90.710 Acquired absence of both cervix and uterus; Z90.79 Acquired absence of other genital organ(s); Z90.722 Acquired absence of ovaries, bilateral; Z79.899 Other long term (current) drug therapy; Z87.891 Personal history of nicotine dependence
CPT/HCPCS: J2704; J3010; J7120

== ENCOUNTER → 2020-10-11 | Outpatient (CLI) | payer MEDICARE, OTHER ==
[~2020-10-11] MED LIST changes: +ADVIL200 MG PO; +AJOVY225 MG/1.5 SQ; +ASPIRIN E.C. 8181 MG PO; +ATARAX 10MG10 MG/TAB PO; +BROVANA15 MCG/2 M IH; +DOXYCYCLINE 10100 MG PO; +MOTRIN 600600 MG/TAB PO; +ONE-A-DAY ESSE1 EACH PO; +PREDNISONE 5MG5 MG
== END ==
LOC: MHCPAIN 09:48
DX: M47.816 Spondylosis without myelopathy or radiculopathy, lumbar region (principal); M47.812 Spondylosis without myelopathy or radiculopathy, cervical region; M53.3 Sacrococcygeal disorders, not elsewhere classified; M79.2 Neuralgia and neuritis, unspecified
CPT/HCPCS: G0463

== ENCOUNTER 2020-11-24 12:15 | Day surgery (SDC) | payer MEDICARE, OTHER ==
[2020-11-24] VITALS (11 sets, daily range): BP systolic 93–145; BP diastolic 63–86; PULSE 80–82; TEMP 99
[~2020-11-24] VITALS: Ht 160 cm; Wt 70.7 kg
[~2020-11-24 12:15] MED LIST changes: -BROVANA15 MCG/2 M IH; -DOXYCYCLINE 10100 MG PO; -PREDNISONE 5MG5 MG
[2020-11-24 13:16] LABS: HEMATOCRIT 37.7 % (37.0-47.0); HEMOGLOBIN 11.6 g/dl (12.5-16.0); MEAN CELL VOLUME 100 fl (80.0-100.0); MEAN CORPUSCULAR HEMOGLOBIN 31 pg (27.0-31.0); MEAN CORPUSCULAR HGB CONC 31 g/dl (33.0-37.0); MEAN PLATELET VOLUME 10.6 fl (7.4-10.4); PLATELET COUNT 265 K/mm3 (130-400); RED BLOOD COUNT 3.79 M/mm3 (4.10-5.30); REDCELL DISTRIBUTION WIDTH-CV 12.7 % (11.5-14.5)
[2020-11-24 13:26] LABS: PROTHROMBIN TIME 10.8 SECONDS (9.7-12.8)
[2020-11-24] MEDS ORDERED: BROVANA15 MCG/2 M IH (13:28)
[2020-11-24] MEDS ORDERED: LEXAPRO20 MG PO (13:28)
[2020-11-24] MEDS ORDERED: PREDNISONE 5MG5 MG (13:29)
[2020-11-24] MEDS ORDERED: DOXYCYCLINE 10100 MG PO (13:30)
[2020-11-24 13:32] LABS: CREATININE, serum 0.62 (0.52-1.25)
--- NOTE | 2020-11-24 13:58 | NUR ---
Dr. Obrien notified that patient is here and ready to go for her 1430 scheduled procedure. Doctor states not ready at this time and he will call the lab when he is ready. Patient made aware.
--- NOTE | 2020-11-24 15:45 | NUR ---
Report from Milly POLO. Transferred from [employer] by bed. Alert and oriented, denies pain and needs at this time. Right Tband with 17 cc air CD&I, good pulses and cap refill < 3 secs noted. VSS on 4 liters via nasal cannula
--- NOTE | 2020-11-24 16:00 | NUR ---
Decreased O2 to 2 liters via nasal cannula
--- NOTE | 2020-11-24 16:15 | NUR ---
Decreased O2 to 1 liter via nasal cannula
--- NOTE | 2020-11-24 19:40 | NUR ---
Pt did well during her recovery, TR band has been deflated, site dressed with bandaid, folded 2x2 and coban. iv dc'd with cath intact dressing applied. I have reviewed dc and fu instructions with pt and her daughter. no questions at time of departure. pt was ambulatory in room with steady gait prior to her departure. To exit via wheelchair.
== END 2020-11-24 20:31 | disposition home or self-care (01) ==
LOC: COL.CAR 12:15
PROVIDERS: Internal Medicine Interventional Cardiology
DX: R94.39 Abnormal result of other cardiovascular function study (principal); R07.89 Other chest pain; R55 Syncope and collapse; I95.9 Hypotension, unspecified; J44.9 Chronic obstructive pulmonary disease, unspecified; G40.909 Epilepsy, unspecified, not intractable, without status epilepticus; Z79.891 Long term (current) use of opiate analgesic; Z79.899 Other long term (current) drug therapy; Z79.82 Long term (current) use of aspirin; Z95.810 Presence of automatic (implantable) cardiac defibrillator
CPT/HCPCS: C1769; J1644; J2250; J3010

== ENCOUNTER → 2021-01-10 | Outpatient (CLI) | payer MEDICARE, OTHER ==
[~2021-01-10] MED LIST changes: +BROVANA15 MCG/2 M IH; +DOXYCYCLINE 10100 MG PO; +PREDNISONE 5MG5 MG
== END ==
LOC: MHCPAIN 10:06
DX: M47.817 Spondylosis without myelopathy or radiculopathy, lumbosacral region (principal); M54.5 Low back pain; M53.3 Sacrococcygeal disorders, not elsewhere classified; M54.2 Cervicalgia; M79.2 Neuralgia and neuritis, unspecified
CPT/HCPCS: G0463

== ENCOUNTER → 2021-04-10 | Outpatient (CLI) | payer MEDICARE, OTHER | LOC: MHCPAIN 12:55 | DX: M47.896 Other spondylosis, lumbar region (principal); M79.2 Neuralgia and neuritis, unspecified; G89.29 Other chronic pain | CPT/HCPCS: G0463 ==

== ENCOUNTER → 2021-06-27 | Outpatient (CLI) | payer MEDICARE, OTHER | LOC: MHCPAIN 10:13 | DX: M54.2 Cervicalgia (principal); M54.50 Low back pain, unspecified; M79.2 Neuralgia and neuritis, unspecified | CPT/HCPCS: G0463 ==

== ENCOUNTER → 2021-09-04 | Outpatient (CLI) | payer MEDICARE, OTHER | LOC: MHCPAIN 11:06 | DX: M54.2 Cervicalgia (principal); M47.812 Spondylosis without myelopathy or radiculopathy, cervical region; M79.2 Neuralgia and neuritis, unspecified | CPT/HCPCS: G0463 ==

== ENCOUNTER → 2021-12-06 | Outpatient (CLI) | payer MEDICARE, OTHER | LOC: MHCPAIN 10:58 | DX: M54.2 Cervicalgia (principal); M54.50 Low back pain, unspecified; M47.812 Spondylosis without myelopathy or radiculopathy, cervical region; M47.896 Other spondylosis, lumbar region | CPT/HCPCS: G0463 ==

== ENCOUNTER 2022-08-31 10:23 | Day surgery (SDC) | payer OTHER ==
[~2022-08-31] VITALS: Ht 160 cm; Wt 71.3 kg
[~2022-08-31 10:23] MED LIST changes: -NEURONTIN300 MG/CAP PO; +ZOFRAN ODT4 MG PO
[2022-08-31 10:46] VITALS: BP 112/87; PULSE 88; TEMP 97.5
[2022-08-31] MEDS ORDERED: TYLENOL 500MG500 MG PO (10:55)
[2022-08-31] MEDS ORDERED: VITAMIN D31000 I1 PO (10:56)
[2022-08-31] MEDS ORDERED: CYMBALTA 60MG60 MG PO (10:57)
[2022-08-31] MEDS ORDERED: ATARAX 10MG10 MG/TAB PO (10:58)
[2022-08-31] MEDS ORDERED: KEPPRA 500MG500 MG PO (10:59)
[2022-08-31] MEDS ORDERED: MULTI VITAMINS1 TAB PO (10:59)
[2022-08-31] MEDS ORDERED: IBU800 M1 PO (10:59)
[2022-08-31] MEDS ORDERED: NITROSTAT0.4 MG/TAB SL (11:00)
[2022-08-31 12:50] VITALS: BP 124/73; PULSE 80; TEMP 97.6
[2022-08-31 13:05] VITALS: BP 132/86; PULSE 84
[2022-08-31 13:20] VITALS: BP 146/88; PULSE 84
--- NOTE | 2022-08-31 13:35 | NUR ---
1250 RETURNS TO ROOM PER CART. AWAKE, ALERT. AMBULATES TO RECLINER WITH STANDBY ASSIST. MINIMAL DYSPNEA WITH THIS ACTIVITY. DENIES NAUSEA, ABD PAIN OR DYSPHAGIA. O2 AT 4L/NC. CALL LIGHT AT SIDE. DAUGHTER IN ROOM 1305 TOLERATES PO SODA WITHOUT NAUSEA. SWALLOWS WITHOUT DIFFICULTY 1315 DISCHARGE INSTRUCIONS REVIEWED. PATIENT VERBALIZES UNDERSTANDING. COPY PROVIDED IN DISCHARGE FOLDER. 132[address] DR. MEHTA HERE TO VISIT WITH PATIENT 1330 DRESSES SELF CONTINUES TO DENY NAUSEA, ABD PAIN OR DYSPHAGIA
== END 2022-08-31 13:38 | disposition home or self-care (01) ==
LOC: SDCO 10:23
DX: Z12.11 Encounter for screening for malignant neoplasm of colon (principal); D12.0 Benign neoplasm of cecum; K21.9 Gastro-esophageal reflux disease without esophagitis; K22.2 Esophageal obstruction; K44.9 Diaphragmatic hernia without obstruction or gangrene; K57.30 Diverticulosis of large intestine without perforation or abscess without bleeding; J44.9 Chronic obstructive pulmonary disease, unspecified; F17.200 Nicotine dependence, unspecified, uncomplicated; Z99.81 Dependence on supplemental oxygen
CPT/HCPCS: J2704; J7120

== ENCOUNTER → 2022-10-22 | Outpatient (CLI) | payer MEDICARE, OTHER ==
[~2022-10-22] MED LIST changes: +CYMBALTA 60MG60 MG PO; +IBU800 M1 PO; +MULTI VITAMINS1 TAB PO; +NITROSTAT0.4 MG/TAB SL; +VITAMIN D31000 I1 PO
== END ==
LOC: COL.RAD 11:15
DX: Z12.2 Encounter for screening for malignant neoplasm of respiratory organs (principal); I63.9 Cerebral infarction, unspecified; F17.210 Nicotine dependence, cigarettes, uncomplicated

== ENCOUNTER → 2023-08-27 | Outpatient (CLI) | payer MEDICARE, OTHER | LOC: MHCPAIN 08:34 | DX: M47.812 Spondylosis without myelopathy or radiculopathy, cervical region (principal); M47.816 Spondylosis without myelopathy or radiculopathy, lumbar region; M79.2 Neuralgia and neuritis, unspecified | CPT/HCPCS: G0463 ==

== ENCOUNTER → 2024-02-11 | Outpatient (CLI) | payer MEDICARE, OTHER | LOC: MHCPAIN 09:17 | DX: M47.812 Spondylosis without myelopathy or radiculopathy, cervical region (principal); M48.02 Spinal stenosis, cervical region; M47.817 Spondylosis without myelopathy or radiculopathy, lumbosacral region; M48.061 Spinal stenosis, lumbar region without neurogenic claudication; M51.26 Other intervertebral disc displacement, lumbar region | CPT/HCPCS: G0463 ==